=== PATIENT | male | born 1970 | race Caucasian/White ===

== ENCOUNTER 2020-07-18 22:07 | Emergency (ER) | payer MEDICAID, SELFPAY ==
[2020-07-18 22:08] VITALS: BP 149/91; PULSE 72; RESP 18; TEMP 36.9; O2SAT 99; BMI 32.4
--- NOTE | 2020-07-18 22:18 | ECG_ITS ---
APPROVED REPORT Exam: Resting ECG HR:75 bpm ECG Measurements Heart Rate 75 AXES AL 134 P 44 QRSd 80 QRS 35 QT 380 T 50 QTc 424 <Conclusion> Normal sinus rhythm Normal ECG Electronically signed by : Wilberto Ward, 07/19/2020 11:59:50
--- NOTE | 2020-07-18 22:18 | XR_ITS ---
PROCEDURE: XR CHEST 2V CLINICAL HISTORY: chest tightness Smoker COMPARISON: No exams were available for comparison FINDINGS: Cardiac size is upper limits of normal. No evidence of CHF. The lungs are clear without infiltrates, suspicious nodules, or pleural effusions. There are degenerative changes in the thoracic spine IMPRESSION: No acute findings. Dictated by: Bobby Marcos MD 07/19/2020 06:42 Bobby Marcos MD in [place] 07/19/2020 06:42
[2020-07-18 22:23] LABS: Microscopic, Urine URINE MICROSCOPIC (MICROSCOPIC)
[2020-07-18 22:26] LABS: Basophils # 0.1 K/mm3 (0-0.2); Basophils % 0.5 % (0.1-2.0); Chloride 99 mmol/L (98-107); Eosinophils # 0.2 K/mm3 (0.0-0.4); Hematocrit 41.9 % (42.0-52.0); Lymphocytes # 4.2 K/mm3 (0.7-4.5); Lymphocytes % 22.5 % (10-50); Mean Corpuscular HGB Conc 33.5 g/dL (31.8-35.4); Mean Corpuscular Hemoglobin 29.6 pg (27.0-31.2); Mean Corpuscular Volume 88.5 fl (80-94); Mean Platelet Volume 9.1 fl (7.4-10.4); Monocytes % 5.2 % (1.7-9.3); Neutrophils # 13.3 K/mm3 (1.8-7.8); Neutrophils % 70.7 % (37.0-80.0); Platelet Count 276 K/mm3 (142-424); Red Blood Count 4.74 M/mm3 (4.60-6.20); Red Cell Distribution Width 13.6 % (11.5-17.5); Sodium 138 mmol/L (136-145); White Blood Count 18.8 K/mm3 (4.8-10.8)
[2020-07-18 22:27] LABS: Potassium 4.1 mmoL/L (3.5-5.1)
[2020-07-18 22:30] VITALS: BP 154/94; PULSE 72; RESP 17; O2SAT 97
[2020-07-18 22:30] LABS: Anion Gap 14.1 mEq/L (5-15); Blood Urea Nitrogen 12 mg/dl (9-20); Calcium 9.6 mg/dl (8.4-10.2); Carbon Dioxide 29 mmol/L (22.0-30.0); Creatinine Clearance Estimated 170 mL/min (50-200); Estimated Glomerular Filt Rate 120 ml/min (>60); GFR (African American) 145 ML/MIN (>60); Glucose 138 mg/dl (74-100)
[2020-07-18 22:32] LABS: Appearance,Urine CLEAR (Clear); Bilirubin,Urine Negative (Negative); Blood, Urine Negative (Negative); Color,Urine YELLOW (Yellow); Glucose,Urine (UA) Negative (Negative); Ketones,Urine Negative (Negative); Leukocyte Esterase,Urine Negative (Negative); Nitrate,Urine Negative (Negative); PH,Urine 6.5 (5.0-8.5); Protein,Urine Negative (Negative); Urobilinogen,Urine 0.2 EU/dl (0.2)
[2020-07-18 22:33] LABS: MANUAL DIFFERENTIAL MANUAL DIFFERENTIAL (MANUAL DIFF)
[2020-07-18 22:40] LABS: Bacteria,Urine Trace /lpf; Mucus,Urine 1+ /lpf
[2020-07-18 22:44] LABS: Amphetamine/Metha Screen,Urine Negative ng/ml (<1000)
[2020-07-18 22:45] LABS: Barbiturates Screen,Urine Negative ng/ml (<200); Benzodiazepines Screen,Urine Negative ng/ml (<200); Troponin I < 0.01 ng/ml (0.00-0.034)
[2020-07-18 22:46] LABS: Cannabinoid Screen,Urine Positive ng/ml (<50)
[2020-07-18 22:47] LABS: Cocaine Screen,Urine Negative ng/ml (<300); Methadone Screen,Urine Negative ng/ml (<300)
[2020-07-18 22:48] LABS: Opiate Screen,Urine Positive ng/ml (<300); Phencyclidine Screen,Urine Negative ng/ml (<25)
[2020-07-18 22:52] LABS: Eosinophils % 1 % (0-3); Lymphocytes % 22 % (10-50); Monocytes % 1 % (2-9); Neutrophils % 75 % (42-76); Platelet Estimate Normal; RBC Morphology Normal; Total Cells Counted 100
--- NOTE | 2020-07-18 22:54 | [facility].EDCP ---
ED Disposition Clinical Impression: Chest pain Qualifiers: Chest pain type: other chest pain Qualified Code(s): R07.89 - Other chest pain Disposition: Home, Self-Care Condition on Discharge: Good Instructions: DI for Atypical Chest Pain Additional Instructions: Follow-up with primary care provider. Slowly titrate Suboxone doses as you have been previously instructed. Advised to return emergency department if you start having worsening chest pain or difficulty breathing. Referrals: Tulio Valenzuela [Primary Care Provider] - - Critical Care Critical Care Time: No Attestation: On 07/18/20, the high probability of a clinically significant, sudden or life threatening deterioration of the following system(s) required my full and direct attention, intervention and personal management. The time I documented below is in addition to time spent performing reported procedures but includes the following listed in this critical care notation. Medical Decision Making - Medical Records Medical records reviewed: Yes: I reviewed the patient's medical records. - [place] Inquiry Pt receiving controlled substance: No Vital Signs: 07/18/20 22:08 07/18/20 22:30 07/18/20 23:00 Temperature 98.4 F Temperature Source Oral Pulse Rate [Right] 72 72 78 Respiratory Rate 18 17 17 Blood Pressure [Right Arm] 149/91 H 154/94 H 149/97 H Blood Pressure Mean [Right Arm] 110 114 114 Blood Pressure Source [Right Arm] Automatic Cuff Automatic Cuff Automatic Cuff Blood Pressure Position [Right Arm] Supine Supine Supine 02 Sat by Pulse Oximetry 99 97 98 Oxygen Delivery Method Room Air Room Air Room Air 07/18/20 23:30 07/19/20 00:00 07/19/20 00:30 Temperature Temperature Source Pulse Rate [Right] 78 74 81 Respiratory Rate 17 17 17 Blood Pressure [Right Arm] 140/83 147/89 H 147/88 H Blood Pressure Mean [Right Arm] 102 108 107 Blood Pressure Source [Right Arm] Automatic Cuff Automatic Cuff Automatic Cuff Blood Pressure Position [Right Arm] Supine Supine Supine 02 Sat by Pulse Oximetry 98 98 99 Oxygen Delivery Method Room Air Room Air Room Air - Lab Data Lab Results 07/18/20 22:10: Urine Color Yellow, Urine Appearance Clear, Urine pH 6.5, Ur Specific [place] 1.020, Urine Protein Negative, Urine Glucose (UA) Negative, Urine Ketones Negative, Urine Blood Negative, Urine Nitrate Negative, Urine Bilirubin Negative, Urine Urobilinogen 0.2, Ur Leukocyte Esterase Negative, Urine RBC 3-5, Urine WBC 5-10, Ur Squamous Epith Cells 5-10, Urine Bacteria Trace, Urine Mucus 1+ 07/18/20 22:10: WBC 18.8 H, RBC 4.74, Hgb 14.0 L, Hct 41.9 L, MCV 88.5, MCH 29.6, MCHC 33.5, RDW 13.6, Plt Count 276, MPV 9.1, Neut % (Auto) 70.7, Lymph % (Auto) 22.5, Mcdonald % (Auto) 5.2, Eos % (Auto) 1.0, Baso % (Auto) 0.5, Neut # (Auto) 13.3 H, Lymph # (Auto) 4.2, Mcdonald # (Auto) 1.0, Eos # (Auto) 0.2, Baso # (Auto) 0.1, Total Counted 100, Neutrophils % (Manual) 75, Lymphocytes % (Manual) 22, Monocytes % (Manual) 1 L, Eosinophils % (Manual) 1, Basophils % (Manual) 1.0, Platelet Estimate Normal, RBC Morphology Normal 07/18/20 22:10: Sodium 138, Potassium 4.1, Chloride 99, Carbon Dioxide 29, Anion Gap 14.1, BUN 12, Creatinine 0.70, Estimated Creat Clear 170, Estimated GFR 120, Est GFR ( Amer) 145, Glucose 138 H, Calcium 9.6, Troponin I < 0.01 07/18/20 22:10: Urine Opiates Screen Positive H, Urine Methadone Screen Negative, Ur Barbituates Screen Negative, Ur Phencyclidine Scrn Negative, Ur Amphetamines Screen Negative, U Benzodiazepines Scrn Negative, Urine Cocaine Screen Negative, U Marijuana (THC) Screen Positive H Result diagrams: 07/18/20 22:10 07/18/20 22:10 Orders (Tests/Meds): ED MEDICATIONS Discontinued Medications Generic Name Dose Route Start Last Admin Trade Name Maykel PRN Reason Stop Dose Admin Aspirin 324 mg 07/18/20 22:20 07/18/20 22:23 Aspirin 81mg Chewable Tablet PO 07/18/20 22:21 324 mg ONCE ONE Administration ORDERS Category Date T
[2020-07-18 23:00] VITALS: BP 149/97; PULSE 78; RESP 17; O2SAT 98
[2020-07-18 23:30] VITALS: BP 140/83; PULSE 78; RESP 17; O2SAT 98
[2020-07-19] VITALS: BP 147/89; PULSE 74; RESP 17; O2SAT 98
[2020-07-19 00:30] VITALS: BP 147/88; PULSE 81; RESP 17; O2SAT 99
[2020-07-19 01:14] VITALS: BP 142/84; PULSE 79; RESP 18; TEMP 36.9; O2SAT 98
== END 2020-07-19 01:18 | disposition home or self-care (01) ==
PROVIDERS: Emergency Provider Emergency Medicine; PCP Family Medicine
DX: R07.89 Other chest pain (principal); I10 Essential (primary) hypertension; E11.9 Type 2 diabetes mellitus without complications; E78.5 Hyperlipidemia, unspecified; K21.9 Gastro-esophageal reflux disease without esophagitis; F17.210 Nicotine dependence, cigarettes, uncomplicated; F33.1 Major depressive disorder, recurrent, moderate; Z79.899 Other long term (current) drug therapy
CPT/HCPCS: 71046; 80048; 80305; 81001; 84484; 85007; 85025; 93005; 99283

== ENCOUNTER → 2021-02-02 14:00 | Outpatient (CLI) | payer MEDICAID, SELFPAY ==
[2021-02-02 16:02] LABS: Basophils # 0.1 K/mm3 (0-0.2); Eosinophils # 0.2 K/mm3 (0.0-0.4); Eosinophils % 1.5 % (0.1-12.0); Hematocrit 43.9 % (42.0-52.0); Hemoglobin 13.6 g/dL (14.1-18.0); Lymphocytes # 3.7 K/mm3 (0.7-4.5); Lymphocytes % 28.9 % (10-50); Mean Corpuscular Hemoglobin 28.8 pg (27.0-31.2); Mean Corpuscular Volume 92.8 fl (80-94); Mean Platelet Volume 10.5 fl (7.4-10.4); Monocytes # 1.1 K/mm3 (0.1-1.0); Monocytes % 8.3 % (1.7-9.3); Neutrophils # 7.8 K/mm3 (1.8-7.8); Neutrophils % 60.3 % (37.0-80.0); Platelet Count 335 K/mm3 (142-424); Red Blood Count 4.73 M/mm3 (4.60-6.20); Red Cell Distribution Width 13.3 % (11.5-17.5); White Blood Count 12.9 K/mm3 (4.8-10.8)
[2021-02-02 16:06] LABS: Chloride 108 mmol/L (98-107); Potassium 5.1 mmoL/L (3.5-5.1); Sodium 140 mmol/L (136-145)
[2021-02-02 16:08] LABS: Alanine Aminotransferase 39 U/L (12-78); Blood Urea Nitrogen 18 mg/dl (9-20); Estimated Glomerular Filt Rate 89 ml/min (>60); GFR (African American) 108 ML/MIN (>60)
[2021-02-02 16:09] LABS: Albumin Level 4.2 g/dl (3.5-5.0); Albumin/Globulin Ratio 1.6 (1.1-1.8); Alkaline Phosphatase 80 U/L (38-126); Anion Gap 12.1 mEq/L (5-15); Aspartate Amino Transferase 33 U/L (17-59); Bilirubin,Total 0.3 mg/dl (0.2-1.3); Calcium 9.5 mg/dl (8.4-10.2); Carbon Dioxide 25 mmol/L (22.0-30.0); Chol/HDL Ratio 6.8 (1-3.5); Cholesterol 189 mg/dl (140-200); Globulin 2.7 g/dL (1.3-3.2); Glucose 273 mg/dl (74-100); HDL Cholesterol 28 mg/dl (40-60); Total Protein,Serum 6.9 g/dl (6.3-8.2); Triglycerides 282 mg/dl (30-150); VLDL Cholesterol 56 mg/dL (0-40)
[2021-02-02 16:21] LABS: Direct LDL Cholesterol 125.88 mg/dL (100-129)
[2021-02-02 16:25] LABS: 25-OH Vitamin D, Total < 12.8 ng/mL (30-100)
[2021-02-02 16:40] LABS: Thyroid Stimulating Hormone 3.59 uIU/mL (0.465-4.68)
[2021-02-02 16:42] LABS: Hemoglobin A1C 10.4 % (4.0-6.0)
[2021-02-02 19:58] LABS: Creatinine,Urine Random 111 mg/dL (Not Estab.); Microalbumin/Creatinine Ratio 5.4
== END ==
PROVIDERS: Visit Provider Nurse Practitioner Family
DX: E11.9 Type 2 diabetes mellitus without complications (principal); I10 Essential (primary) hypertension; E55.9 Vitamin D deficiency, unspecified; Z79.84 Long term (current) use of oral hypoglycemic drugs
CPT/HCPCS: 80053; 80061; 82043; 82306; 82570; 83036; 84436; 84443; 85025

== ENCOUNTER → 2021-06-29 17:20 | Outpatient (CLI) | payer MEDICAID, SELFPAY ==
[2021-06-29 19:34] LABS: Alanine Aminotransferase 36 U/L (12-78); Albumin Level 4.3 g/dl (3.5-5.0); Albumin/Globulin Ratio 1.5 (1.1-1.8); Alkaline Phosphatase 70 U/L (38-126); Anion Gap 17.5 mEq/L (5-15); Aspartate Amino Transferase 33 U/L (17-59); Bilirubin,Total 0.5 mg/dl (0.2-1.3); Blood Urea Nitrogen 31 mg/dl (9-20); Calcium 9.3 mg/dl (8.4-10.2); Carbon Dioxide 25 mmol/L (22.0-30.0); Chloride 100 mmol/L (98-107); Chol/HDL Ratio 5.5 (1-3.5); Cholesterol 143 mg/dl (140-200); Estimated Glomerular Filt Rate 71 ml/min (>60); GFR (African American) 86 ML/MIN (>60); Globulin 2.8 g/dL (1.3-3.2); Glucose 123 mg/dl (74-100); HDL Cholesterol 26 mg/dl (40-60); Potassium 5.5 mmoL/L (3.5-5.1); Sodium 137 mmol/L (136-145); Total Protein,Serum 7.1 g/dl (6.3-8.2); Triglycerides 199 mg/dl (30-150); VLDL Cholesterol 40 mg/dL (0-40)
[2021-06-29 19:38] LABS: Microalbumin < 6.000 mg/L (0-16.7)
[2021-06-29 19:39] LABS: Basophils # 0.1 K/mm3 (0-0.2); Basophils % 0.7 % (0.1-2.0); Eosinophils # 0.2 K/mm3 (0.0-0.4); Eosinophils % 1.1 % (0.1-12.0); Hemoglobin 12.6 g/dL (14.1-18.0); Lymphocytes # 2.7 K/mm3 (0.7-4.5); Lymphocytes % 18.5 % (10-50); Mean Corpuscular HGB Conc 32.4 g/dL (31.8-35.4); Mean Corpuscular Hemoglobin 28.1 pg (27.0-31.2); Mean Corpuscular Volume 86.7 fl (80-94); Mean Platelet Volume 10.9 fl (7.4-10.4); Monocytes # 0.9 K/mm3 (0.1-1.0); Monocytes % 5.9 % (1.7-9.3); Neutrophils # 10.6 K/mm3 (1.8-7.8); Neutrophils % 73.8 % (37.0-80.0); Platelet Count 304 K/mm3 (142-424); Red Cell Distribution Width 13.8 % (11.5-17.5); White Blood Count 14.4 K/mm3 (4.8-10.8)
[2021-06-29 19:45] LABS: Direct LDL Cholesterol 89.75 mg/dL (100-129)
[2021-06-29 19:51] LABS: 25-OH Vitamin D, Total 15.3 ng/mL (30-100); Free T4 (Free Thyroxine) 1.44 ng/dl (0.78-2.19)
[2021-06-29 20:04] LABS: Thyroid Stimulating Hormone 4.23 uIU/mL (0.465-4.68)
[2021-06-29 20:09] LABS: Hemoglobin A1C 9.8 % (4.0-6.0)
[2021-07-02 12:43] LABS: C-Peptide 3.3 ng/mL (1.1-4.4)
== END ==
PROVIDERS: Visit Provider Nurse Practitioner Family
DX: E11.9 Type 2 diabetes mellitus without complications (principal); I10 Essential (primary) hypertension; E55.9 Vitamin D deficiency, unspecified; Z79.84 Long term (current) use of oral hypoglycemic drugs; Z79.899 Other long term (current) drug therapy
CPT/HCPCS: 80053; 80061; 82043; 82306; 83036; 84439; 84443; 84681; 85025

== ENCOUNTER → 2021-08-10 07:46 | Outpatient (CLI) | payer SELFPAY ==
--- NOTE | 2021-08-10 08:30 | PC.NURSE ---
PFT Completed with 6 minute walk test. Albuterol 0.083% given via HHN Pt tolerated tx well.
--- NOTE | 2021-08-10 09:22 | XR_ITS ---
PROCEDURE: XR CHEST 2V CLINICAL HISTORY: dust exposure COMPARISON: CR XR CHEST 2V from 07/18/2020 FINDINGS: The cardiomediastinal silhouette and pulmonary vascularity are within normal limits. The lungs are clear without infiltrates, suspicious nodules, or pleural effusions. Degenerative changes thoracic spine IMPRESSION: No acute findings. Dictated by: Bobby Marcos MD 08/10/2021 09:49 Bobby Marcos MD in [facility] 08/10/2021 09:49
== END ==
PROVIDERS: PCP Nurse Practitioner Family; Visit Provider Internal Medicine Pulmonary Disease
DX: R06.00 Dyspnea, unspecified (principal); Z57.9 Occupational exposure to unspecified risk factor
CPT/HCPCS: 71046; 94060; 94618; 94726; 94729

== ENCOUNTER → 2023-01-08 23:30 | Outpatient (CLI) | payer OTHER, SELFPAY ==
[2023-01-08 19:11] LABS: Basophils # 0.1 K/mm3 (0-0.2); Eosinophils # 0.2 K/mm3 (0.0-0.4); Eosinophils % 2.1 % (0.1-12.0); Hemoglobin 14.2 g/dL (14.1-18.0); Lymphocytes # 2.9 K/mm3 (0.7-4.5); Lymphocytes % 26.9 % (10-50); Mean Corpuscular HGB Conc 31.5 g/dL (31.8-35.4); Mean Corpuscular Hemoglobin 28.2 pg (27.0-31.2); Mean Corpuscular Volume 89.4 fl (80-94); Mean Platelet Volume 11.2 fl (7.4-10.4); Monocytes # 0.9 K/mm3 (0.1-1.0); Monocytes % 8.3 % (1.7-9.3); Neutrophils # 6.6 K/mm3 (1.8-7.8); Neutrophils % 61.7 % (37.0-80.0); Platelet Count 290 K/mm3 (142-424); Red Blood Count 5.03 M/mm3 (4.60-6.20); White Blood Count 10.7 K/mm3 (4.8-10.8)
[2023-01-08 19:41] LABS: Creatinine,Urine Random 71 mg/dL (Not Estab.); Microalbumin < 6.000 mg/L (0-16.7)
[2023-01-08 19:43] LABS: Alanine Aminotransferase 40 U/L (12-78); Albumin Level 4.1 g/dl (3.5-5.0); Albumin/Globulin Ratio 1.4 (1.1-1.8); Alkaline Phosphatase 100 U/L (38-126); Anion Gap 7.1 mEq/L (5-15); Aspartate Amino Transferase 39 U/L (17-59); Bilirubin,Total 0.5 mg/dl (0.2-1.3); Blood Urea Nitrogen 13 mg/dl (9-20); Calcium 8.8 mg/dl (8.4-10.2); Carbon Dioxide 30 mmol/L (22.0-30.0); Chloride 103 mmol/L (98-107); Chol/HDL Ratio 5.6 (1-3.5); Cholesterol 162 mg/dl (140-200); Estimated Glomerular Filt Rate 102 ml/min (>60); GFR (African American) 123 ML/MIN (>60); Globulin 2.9 g/dL (1.3-3.2); Glucose 293 mg/dl (74-100); HDL Cholesterol 29 mg/dl (40-60); Potassium 4.1 mmoL/L (3.5-5.1); Sodium 136 mmol/L (136-145); Triglycerides 313 mg/dl (30-150); VLDL Cholesterol 63 mg/dL (0-40)
[2023-01-08 19:54] LABS: Direct LDL Cholesterol 97.89 mg/dL (100-129)
[2023-01-08 20:00] LABS: 25-OH Vitamin D, Total < 12.8 ng/mL (30-100)
[2023-01-08 20:15] LABS: Prostate Specific Ag Screen 0.2 ng/ml (0.0-4.0)
== END ==
LOC: LAB.DROPOF 01-09 00:18
PROVIDERS: PCP Physician Assistant; Visit Provider Physician Assistant
DX: E11.9 Type 2 diabetes mellitus without complications (principal); H66.92 Otitis media, unspecified, left ear; H60.92 Unspecified otitis externa, left ear; K04.7 Periapical abscess without sinus; E55.9 Vitamin D deficiency, unspecified; Z79.84 Long term (current) use of oral hypoglycemic drugs
CPT/HCPCS: 80053; 80061; 82043; 82306; 82570; 83036; 84443; 85025; G0103

== ENCOUNTER 2024-05-28 10:52 | Outpatient (CLI) | payer OTHER, SELFPAY ==
[2024-05-28 17:55] LABS: Basophils # 0.1 K/mm3 (0-0.2); Eosinophils # 0.1 K/mm3 (0.0-0.4); Hemoglobin 15.4 g/dL (14.1-18.0); Lymphocytes # 3.8 K/mm3 (0.7-4.5); Lymphocytes % 29.1 % (10-50); Mean Corpuscular HGB Conc 32.8 g/dL (31.8-35.4); Mean Corpuscular Hemoglobin 30.1 pg (27.0-31.2); Mean Corpuscular Volume 91.8 fl (80-94); Mean Platelet Volume 12.1 fl (7.4-10.4); Monocytes # 0.8 K/mm3 (0.1-1.0); Monocytes % 6.3 % (1.7-9.3); Neutrophils # 8.3 K/mm3 (1.8-7.8); Neutrophils % 62.6 % (37.0-80.0); Platelet Count 255 K/mm3 (142-424); Red Blood Count 5.12 M/mm3 (4.60-6.20); Red Cell Distribution Width 13.7 % (11.5-17.5); White Blood Count 13.2 K/mm3 (4.8-10.8)
[2024-05-28 18:39] LABS: Alanine Aminotransferase 80 U/L (12-78); Albumin Level 4.5 g/dl (3.5-5.0); Albumin/Globulin Ratio 1.4 (1.1-1.8); Alkaline Phosphatase 109 U/L (38-126); Aspartate Amino Transferase 44 U/L (17-59); Bilirubin,Total 0.6 mg/dl (0.2-1.3); Blood Urea Nitrogen 16 mg/dl (9-20); Carbon Dioxide 26 mmol/L (22.0-30.0); Chloride 101 mmol/L (98-107); Cholesterol 279 mg/dl (140-200); Estimated Glomerular Filt Rate 118 ml/min (>60); GFR (African American) 143 ML/MIN (>60); Globulin 3.2 g/dL (1.3-3.2); Glucose 367 mg/dl (74-100); HDL Cholesterol 35 mg/dl (40-60); Sodium 137 mmol/L (136-145); Total Protein,Serum 7.7 g/dl (6.3-8.2)
[2024-05-28 18:51] LABS: Direct LDL Cholesterol 171.28 mg/dL (100-129)
[2024-05-28 18:57] LABS: Free T4 (Free Thyroxine) 1.34 ng/dl (0.78-2.19)
[2024-05-28 19:08] LABS: Triglycerides 414 mg/dl (30-150)
[2024-05-28 19:10] LABS: Prostate Specific Ag Screen 0.3 ng/ml (0.0-4.0); Thyroid Stimulating Hormone 4.75 uIU/mL (0.465-4.68)
[2024-05-28 19:16] LABS: Iron 124 ug/dL (49-181)
[2024-05-28 19:26] LABS: Total Iron Binding Capacity 341 ug/dL (261-462)
[2024-05-28 19:29] LABS: Vitamin B12 969 pg/mL (239-931)
[2024-05-28 19:53] LABS: Ferritin 126 ng/ml (17.9-464)
[2024-05-28 20:40] LABS: Creatinine,Urine Random 50 mg/dL (Not Estab.)
[2024-05-28 20:42] LABS: Microalbumin < 6.000 mg/L (0-16.7)
[2024-05-28 21:03] LABS: 25-OH Vitamin D, Total 16.1 ng/mL (30-100)
[2024-05-29 13:47] LABS: HIV (1&2) Antibody Rapid NON REACTIVE
[2024-06-02 18:33] LABS: HCV Ab Reactive (Non Reactive)
== END 2024-05-28 23:59 | disposition home or self-care (01) ==
LOC: LAB.DROPOF 05-31 10:53
PROVIDERS: PCP Student in an Organized Health Care Education/Training Program; Visit Provider Student in an Organized Health Care Education/Training Program
DX: Z12.5 Encounter for screening for malignant neoplasm of prostate (principal); Z11.59 Encounter for screening for other viral diseases; Z11.4 Encounter for screening for human immunodeficiency virus [HIV]; E03.9 Hypothyroidism, unspecified; G62.9 Polyneuropathy, unspecified; E55.9 Vitamin D deficiency, unspecified; E11.9 Type 2 diabetes mellitus without complications; Z79.84 Long term (current) use of oral hypoglycemic drugs; Z79.85 Long-term (current) use of injectable non-insulin antidiabetic drugs; Z79.4 Long term (current) use of insulin; Z68.30 Body mass index [BMI] 30.0-30.9, adult; E66.9 Obesity, unspecified
CPT/HCPCS: 80050; 80053; 80061; 82043; 82306; 82570; 82607; 82728; 83540; 83550; 84439; 84443; 85025; G0103

== ENCOUNTER 2025-01-03 15:56 | Outpatient (CLI) | payer OTHER, SELFPAY ==
--- NOTE | 2025-01-03 15:59 | XR_ITS ---
PROCEDURE INFORMATION: Exam: XR Right Ankle Exam date and time: 01/03/2025 4:04 PM Age: 54 years old Clinical indication: Pain; Ankle; Right; Additional info: Right posterior ankle pain TECHNIQUE: Imaging protocol: Radiologic exam of the right ankle. Views: 1 or 2 views. COMPARISON: CR XR ANKLE RT 2V 01/03/2025 4:04 PM FINDINGS: Bones/joints: There is a 4.5 cm geographic, slightly expansile bone lesion within the distal tibial metaphysis with a slightly radiolucent, ground-glass appearance possibly representing a bone cyst or fibrous dysplasia. Osseous structures are otherwise unremarkable. Joint surfaces of the ankle mortise is fairly well-preserved. Alignment is maintained. No fracture detected. The Soft tissues: Unremarkable. IMPRESSION: 4.5 cm slightly expansile bone lesion distal tibial shaft. Recommend further imaging beginning with CT examination of the right ankle.
--- NOTE | 2025-01-03 15:59 | XR_ITS ---
PROCEDURE INFORMATION: Exam: XR Right Foot Exam date and time: 01/03/2025 4:04 PM Age: 54 years old Clinical indication: Pain; Foot; Right; Additional info: Right great toe infection TECHNIQUE: Imaging protocol: Radiologic exam of the right foot. Views: 3 or more views. COMPARISON: CR XR ANKLE RT 2V 01/03/2025 4:04 PM FINDINGS: Bones/joints: There are no osteolytic or destructive bone changes. There is no fracture evident. There indistinct small cystic radiolucencies involving the base of the 2nd 3rd and 4th metatarsals of uncertain etiology. It may be degenerative in nature secondary to small bone cysts or enchondromas. There appears to be bony fusion of the 3rd tarsometatarsal joint. There are degenerative changes involving the base of the metatarsals most pronounced at the 4th-5th metatarsal. Soft tissues: Normal. IMPRESSION: 1. No radiographic evidence of osteomyelitis. 2. Nonspecific cystic bone changes involving the bases of the 2nd 3rd and 4th metatarsals as discussed above. Findings can be better assessed on CT examination of the right foot.
== END 2025-01-03 23:59 | disposition home or self-care (01) ==
LOC: RAD 15:57
PROVIDERS: PCP Internal Medicine; Visit Provider Internal Medicine
DX: M25.571 Pain in right ankle and joints of right foot (principal); S90.421A Blister (nonthermal), right great toe, initial encounter; L08.9 Local infection of the skin and subcutaneous tissue, unspecified
CPT/HCPCS: 73600; 73630

== ENCOUNTER 2025-01-17 06:44 | Outpatient (CLI) | payer OTHER, SELFPAY ==
--- NOTE | 2025-01-17 06:50 | CT_ITS ---
FINAL REPORT TECHNIQUE: Thin section axial CT images with coronal and sagittal reformats were performed. This study was performed with techniques to keep radiation doses as low as reasonably achievable (ALARA). Individualized dose reduction techniques using automated exposure control or adjustment of mA and/or kV according to the patient''s size were employed. CLINICAL HISTORY: Right foot pain, lesion in foot FINDINGS: There are lucencies involving the bases of the second, third and fourth metatarsals with thin sclerotic margins related to likely benign etiology such as degenerative bone cysts associated with degenerative changes of the midfoot. There is no periosteal reaction. No soft tissue masses seen. There is no fracture identified. IMPRESSION: Benign appearing marrow signal of the second metatarsal base and to a lesser extent third and fourth metatarsal bases, favor degenerative cysts. No fracture identified. Reviewed, Interpreted and Dictated by Tenzin Downing MD Transcribed by Chana Walls Authenticated and [facility]
--- NOTE | 2025-01-17 06:50 | CT_ITS ---
FINAL REPORT TECHNIQUE: Thin section axial CT images with coronal and sagittal reformats were performed. This study was performed with techniques to keep radiation doses as low as reasonably achievable (ALARA). Individualized dose reduction techniques using automated exposure control or adjustment of mA and/or kV according to the patient''s size were employed. CLINICAL HISTORY: Right ankle pain, lesion in distal tibial bone FINDINGS: There is no fracture. There are mild degenerative changes. A tiny joint body is seen in the posterior ankle joint anterior to the os trigonum. There is mild deformity of the distal tibial shaft with cylindrical cortical defect of the lateral cortex which may present prior surgery and/or old fracture. IMPRESSION: 1. No acute bony abnormality. 2. Abnormal appearance of the distal tibia which may related to old surgery or previous trauma. Reviewed, Interpreted and Dictated by Tenzin Downing MD Transcribed by Chana Walls Authenticated and . [facility]
== END 2025-01-17 23:59 | disposition home or self-care (01) ==
LOC: RAD 06:45
PROVIDERS: PCP Internal Medicine; Visit Provider Internal Medicine
DX: M25.571 Pain in right ankle and joints of right foot (principal); M79.671 Pain in right foot; M89.9 Disorder of bone, unspecified
CPT/HCPCS: 73700

== ENCOUNTER 2025-01-31 13:15 | Outpatient (CLI) | payer OTHER, SELFPAY ==
--- NOTE | 2025-01-31 13:17 | US_ITS ---
FINAL REPORT CLINICAL HISTORY: Nonhealing right great toe ulcer,DM,HTN,HLD,SMOKER,CLAUDICATION RLE COMPARISON: None FINDINGS: ANKLE-BRACHIAL PRESSURE INDICES Pressure indices are as follows: RIGHT LOWER EXTREMITY: Ankle-brachial pressure index: 0.7 Comments: Moderate peripheral vascular disease LEFT LOWER EXTREMITY: Ankle-brachial pressure index: 1.1 Comments: Normal CONCLUSION: Moderate peripheral vascular disease in the right lower extremity, normal pressure index in the left lower extremity. Given the extent of disease, the patient may benefit from CT angiography for further evaluation. Reviewed, Interpreted and Dictated by Tenzin Downing MD Transcribed by Winter Parkinson Authenticated and [facility]
== END 2025-01-31 23:59 | disposition home or self-care (01) ==
LOC: RT 13:15
PROVIDERS: PCP Internal Medicine; Visit Provider Internal Medicine
DX: I73.9 Peripheral vascular disease, unspecified (principal); L97.519 Non-pressure chronic ulcer of other part of right foot with unspecified severity; E11.42 Type 2 diabetes mellitus with diabetic polyneuropathy
CPT/HCPCS: 93923

== ENCOUNTER 2025-02-07 16:45 | Outpatient (CLI) | payer OTHER, SELFPAY ==
[2025-02-07 20:12] LABS: Basophils # 0.1 K/mm3 (0-0.2); Basophils % 0.9 % (0.1-2.0); Eosinophils # 0.1 K/mm3 (0.0-0.4); Eosinophils % 1.4 % (0.1-12.0); Hematocrit 46.1 % (42.0-52.0); Hemoglobin 14.9 g/dL (14.1-18.0); Lymphocytes # 3.4 K/mm3 (0.7-4.5); Lymphocytes % 33.4 % (10-50); Mean Corpuscular HGB Conc 32.3 g/dL (31.8-35.4); Mean Corpuscular Hemoglobin 28.4 pg (27.0-31.2); Mean Corpuscular Volume 87.8 fl (80-94); Monocytes # 0.7 K/mm3 (0.1-1.0); Monocytes % 7.1 % (1.7-9.3); Neutrophils # 5.8 K/mm3 (1.8-7.8); Neutrophils % 56.3 % (37.0-80.0); Platelet Count 224 K/mm3 (142-424); Red Blood Count 5.25 M/mm3 (4.60-6.20); Red Cell Distribution Width 12.6 % (11.5-17.5); White Blood Count 10.2 K/mm3 (4.8-10.8)
[2025-02-07 20:43] LABS: Albumin Level 4.3 g/dl (3.5-5.0); Chloride 100 mmol/L (98-107); Potassium 5.1 mmoL/L (3.5-5.1); Sodium 136 mmol/L (136-145)
[2025-02-07 20:45] LABS: Alanine Aminotransferase 48 U/L (12-78); Blood Urea Nitrogen 13 mg/dl (9-20); Estimated Glomerular Filt Rate 118 ml/min (>60); GFR (African American) 142 ML/MIN (>60)
[2025-02-07 20:46] LABS: Albumin/Globulin Ratio 1.8 (1.1-1.8); Alkaline Phosphatase 75 U/L (38-126); Anion Gap 9.1 mEq/L (5-15); Aspartate Amino Transferase 37 U/L (17-59); Bilirubin,Total 0.5 mg/dl (0.2-1.3); Calcium 9.7 mg/dl (8.4-10.2); Carbon Dioxide 32 mmol/L (22.0-30.0); Chol/HDL Ratio 7.6 (1-3.5); Cholesterol 243 mg/dl (140-200); Globulin 2.4 g/dL (1.3-3.2); HDL Cholesterol 32 mg/dl (40-60); Total Protein,Serum 6.7 g/dl (6.3-8.2)
[2025-02-07 20:56] LABS: Hemoglobin A1C 12.3 % (4.0-6.0)
[2025-02-07 20:57] LABS: Direct LDL Cholesterol 115.51 mg/dL (100-129)
[2025-02-07 20:58] LABS: Erythrocyte Sedimentation Rate 7 mm/hr (0-20)
[2025-02-07 21:52] LABS: Glucose 400 mg/dl (74-100)
[2025-02-07 21:53] LABS: Triglycerides 617 mg/dl (30-150)
== END 2025-02-07 23:59 | disposition home or self-care (01) ==
LOC: LAB.DROPOF 02-08 14:32
PROVIDERS: PCP Internal Medicine; Visit Provider Internal Medicine
DX: E78.5 Hyperlipidemia, unspecified (principal); E11.42 Type 2 diabetes mellitus with diabetic polyneuropathy; L97.519 Non-pressure chronic ulcer of other part of right foot with unspecified severity; I73.9 Peripheral vascular disease, unspecified; I10 Essential (primary) hypertension; Z79.84 Long term (current) use of oral hypoglycemic drugs; Z79.4 Long term (current) use of insulin; F17.210 Nicotine dependence, cigarettes, uncomplicated
CPT/HCPCS: 80053; 80061; 83036; 85025; 85651

== ENCOUNTER 2025-06-15 22:19 | Emergency (ER) | payer OTHER, SELFPAY ==
--- NOTE | 2025-06-15 22:20 | PC.NURSE ---
Pt able to swallow and manage his own secreations
[2025-06-15 22:25] VITALS: BP 131/83; PULSE 65; RESP 20; TEMP 37; O2SAT 97; BMI 29.7
--- NOTE | 2025-06-15 22:27 | CT_ITS ---
PROCEDURE INFORMATION: Exam: CT Neck With Contrast Exam date and time: 06/15/2025 11:11 PM Age: 54 years old Clinical indication: Other: Pharyngitis, L neck fullness difficulty swallowing TECHNIQUE: Imaging protocol: Computed tomography of the neck with contrast. Radiation optimization: All CT scans at this facility use at least one of these dose optimization techniques: automated exposure control; mA and/or kV adjustment per patient size (includes targeted exams where dose is matched to clinical indication); or iterative reconstruction. Contrast material: ISOVUE; Contrast volume: 75 ml; Contrast route: IV; COMPARISON: CR XR CHEST 2V 08/10/2021 9:29 AM FINDINGS: Salivary glands: Unremarkable. Glands are normal in size. Pharynx: Poorly defined left palatine tonsillar hypodensity measuring 2.5 x 1.6 x 3.0 cm with mass effect and partial airway narrowing. Larynx: Unremarkable. Epiglottis is normal. Thyroid: Normal. No enlarged or calcified nodules. Trachea: Visualized trachea is unremarkable. Lungs: Unremarkable as visualized. Lymph nodes: Multilevel reactive lymph nodes. Bones/joints: Unremarkable. No acute fracture. Soft tissues: Unremarkable. No significant soft tissue swelling. IMPRESSION: Left peritonsillar phlegmon/developing abscess with mass effect and partial airway narrowing.
--- NOTE | 2025-06-15 22:29 | PC.NURSE ---
Pt awake alert and oriented Skin pink warm and dry Resp full and easy Speech clear and appropriate. Pt's voice hoarse.
--- NOTE | 2025-06-15 22:30 | ED_ITS ---
Discharge Plan Disposition Patient Disposition: Left Against Medical Advice Prescriptions Prescriptions: No Action aspirin [Adult Aspirin Regimen] 81 mg tablet,delayed release (DR/EC) 81 mg PO DAILY Qty: 90 3RF ergocalciferol (vitamin D2) 1,250 mcg (50,000 unit) capsule 1,250 mcg PO WEEKLY Qty: 14 3RF methadone 10 mg/5 mL solution 135 mg PO DAILY mupirocin calcium 2 % cream 1 applic topical BID Qty: 30 3RF fluoxetine 10 mg capsule 10 mg PO DAILY Qty: 30 2RF lactulose 10 gram/15 mL solution 20 g PO DAILY PRN (Reason: constipation) Qty: 946 1RF (DME) blood-glucose meter Misc See Rx Instructions .ROUTE .MEDSUPPLY Qty: 1 0RF Rx Instructions: Check blood sugars twice a day and keep a record insulin glargine [Lantus Solostar U-100 Insulin] 100 unit/mL (3 mL) insulin pen 40 unit SQ HS Qty: 15 5RF cholecalciferol (vitamin D3) 50 mcg (2,000 unit) capsule 50 mcg PO DAILY Qty: 90 3RF (DME) Dexcom G6 Dumper Misc See Rx Instructions .Route Qty: 1 0RF Rx Instructions: As directed (DME) Dexcom G6 Transmitter Device See Rx Instructions .Route Qty: 1 0RF Rx Instructions: As directed (DME) Dexcom G6 Sensor Device See Rx Instructions .Route Qty: 3 0RF Rx Instructions: As directed (DME) pen needle, diabetic [BD Ultra-Fine Micro Pen Needle] 32 gauge x 1/4 needle See Rx Instructions .Route Qty: 100 5RF Rx Instructions: As directed CHECK SUGAR TWICE DAILY losartan-hydrochlorothiazide 50-12.5 mg tablet 1 tab PO DAILY Qty: 90 1RF glipizide 10 mg tablet 10 mg PO BID Qty: 180 1RF cetirizine [Zyrtec] 10 mg tablet 10 mg PO DAILY Qty: 30 2RF fluticasone propionate [Flonase Allergy Relief] 50 mcg/actuation spray,suspension 1 spray intranasal DAILY PRN (Reason: allergy symptoms) Qty: 16 2RF Rx Instructions: administer into each nostril metformin 1,000 mg tablet 1,000 mg PO BID Qty: 180 1RF Rx Instructions: Take with food or meal atorvastatin 40 mg tablet 40 mg PO DAILY Qty: 90 1RF naproxen 500 mg tablet See Rx Instructions .ROUTE .COMPLEX Qty: 60 1RF Dose Instruction: TAKE ONE TABLET BY MOUTH 2 TIMES A DAY NEEDED FOR PAIN OR INFLAMMATION Rx Instructions: TAKE ONE TABLET BY MOUTH 2 TIMES A DAY NEEDED FOR PAIN OR INFLAMMATION nicotine (polacrilex) 4 mg gum 4 mg buccal Q2H Qty: 100 1RF omeprazole 20 mg capsule,delayed release(DR/EC) See Rx Instructions .ROUTE .COMPLEX Qty: 90 1RF Dose Instruction: TAKE 1 CAPSULE BY MOUTH ONCE DAILY FOR STOMACH Rx Instructions: TAKE 1 CAPSULE BY MOUTH ONCE DAILY FOR STOMACH gabapentin 300 mg capsule 600 mg PO HS Qty: 60 0RF Referrals Follow up/Referrals: Wilberto Ward MD [Primary Care Provider, Medical] - See instructions Clinical Impressions Clinical Impression: Abscess, peritonsillar Print Language Print Language: Tamazight Discharge ED Provider: Escobar Borden General Adult HPI <Escobar Borden MD - Last Filed: 06/15/25 22:34> General Chief complaint: Sore Throat Stated complaint: Sore Throat; Unable to swallow Time Seen by Provider: 06/15/25 22:20 Mode of Arrival: Ambulatory Source of Information: Patient Description of Symptoms (Recalled from ER Triage Doc. by RN): Pt states he has had a sore throat for a few days voice hoarse and difficult to swallow also associated History of Present Illness HPI narrative: Patient is a 54-year-old male smoker who presents emergency department for evaluation of difficulty swallowing and sore throat. He has had a sore throat over the last few days, his voice has become increasingly hoarse and garbled and he has had some difficulty swallowing. No vomiting. No chest pain. Not particularly significantly limited range of motion however due to worsening symptoms of difficulty swallowing who presents here for continued evaluation. No other acute complaints at this time. Please note that above description of symptoms, in this electronic medical record under categorization of recalled from ER triage doctor by RN are reflective of an initial nursing assessment, however, is not reflective of my full history and physical exam that was personally taken and clarified. Consequentially, this preceding description of symptoms, which may include the patient's categorized chief complaint in the EMR, do not reflect my personal clinical impression, and the ultimate description of history of present illness and patient stated complaints should be deferred to this section of the note. Unless stated otherwise or congruent with this section of the note, additional signs, symptoms, or incongruence should be interpreted as inaccurate with my clinical impression. Related Data Home Medications ?Medication ?Instructions ?Recorded ?Confirmed methadone 10 mg/5 mL oral solution 135 mg PO DAILY 10/1005/11/25 Previous Rx's ?Medication ?Instructions ?Recorded cholecalciferol (vitamin D3) 50 50 mcg PO DAILY #90 ca ps 01/10/23 mcg (2,000 unit) capsule blood-glucose transmitter (Dexcom #1 ea 01/22/23 G6 Transmitter device) blood-glucose,sas analyst,cont #1 ea 01/22/23 (Dexcom G6 Dumper) blood-glucose sensor (Dexcom G6 #3 ea 02/11/23 Sensor device) aspirin 81 mg tablet,delayed 81 mg PO DAILY #90 tabs 0 05/28/24 release (Adult Aspirin Regimen) ergocalciferol (vitamin D2) 1,250 1,250 mcg PO WEEKLY #14 caps 05/28/24 mcg (50,000 unit) capsule pen needle, diabetic 32 gauge x #100 ea 11/03/2411/20 (BD Ultra-Fine Micro Pen Needle) glipizide 10 mg tablet 10 mg PO BID #180 tabs 12/06 losartan 50 mg-hydrochlorothiazide 1 tab PO DAILY #90 tabs 12/06/24 12.5 mg tablet mupirocin calcium 2 % topical cream 1 applic topical B ID #30 grams 01/03/25 fluoxetine 10 mg capsule 10 mg PO DAILY #30 caps 01/15 cetirizine 10 mg tablet (Zyrtec) 10 mg PO DAILY #30 ta bs 02/04/25 fluticasone propionate 50 1 spray intranasal DAILY PRN 02/04/25 mcg/actuation nasal allergy symptoms #16 grams spray,suspension (Flonase Allergy Relief) atorvastatin 40 mg tablet 40 mg PO DAILY #90 tabs 01/16 07/11 metformin 1,000 mg tablet 1,000 mg PO BID #180 tabs naproxen 500 mg tablet See Rx Instructions .Route 0 03/28/25 .COMPLEX #60 tabs blood-glucose meter #1 ea 05/11/25 insulin glargine 100 unit/mL (3 40 unit (0.4 mL) SQ HS #15 mL 05/11/25 mL) subcutaneous pen (Lantus Solostar U-100 Insulin) lactulose 10 gram/15 mL oral 20 g (30 mL) PO DAILY PRN 05/11/25 solution constipation #946 mL nicotine (polacrilex) 4 mg gum 4 mg buccal Q2H #100 ea 05/17/25 omeprazole 20 mg capsule,delayed See Rx Instructions . Route 05/26/25 release .COMPLEX #90 caps gabapentin 300 mg capsule 600 mg (2 x 300 mg) PO HS #6 0 caps 06/08/25 Allergies Allergy/AdvReac Type Severity Reaction Status Date / Time No Known Allergies Allergy Verified 05/11/25 15:17 [facility] <Escobar Borden MD - Last Filed: 06/15/25 22:34> [facility] Disclaimer: The information contained in this section may have been updated after the patient was seen, as this information can be updated by other users. Medical History Tobacco use Opiate dependence Uncontrolled blood glucose Traumatic ulcer of lower leg, limited to breakdown of skin Acute eczema Hypertension Diabetes Vitamin D deficiency Surgical History No significant past surgical history Family History Other No significant family history Social History Smoking Status: Current every day smoker tobacco type: cigarettes packs per day: 1 alcohol intake: never substance use type: marijuana current occupational status: employed Travel in the last 8 weeks?: None household members: family housing: house Have you lived/traveled outside [place] in past 30 days?: No Contact w/someone who lives/traveled outside US past 30 days?: No Exposure to someone with infectious disease in past 14 days?: No Do you have a fever (greater than 100.4 F or 38 C)?: No Have you tested positive for COVID-19?: No Exposed to someone with COVID-19 in past 14 days?: No Do you have a sore throat?: No Do you have a cough?: No Do you have any weakness?: No Do you have any diarrhea?: No Are you experiencing any unusual bleeding?: No Do you have any muscle aches/pain?: No Do you have any abdominal pain?: No Are you experiencing loss of taste or smell?: No Other Medical History Have you received the Flu Vaccine for this season: No Have you received the Pneumonia Vaccine: No <Escobar Borden MD - Last Filed: 06/15/25 22:34> ROS Obtained: Yes Systems reviewed as appropriate & no additional complaints except as documented Physical Exam <Escobar Borden MD - Last Filed: 06/15/25 22:34> General General appearance: alert and in no apparent distress Head Head exam: atraumatic and normocephalic Eye Eye exam: Present PERRL and EOMI ENT ENT exam: Present mucous membranes moist; Absent normal oropharynx (Mildly swollen palate teen tonsils with exudate) Neck Neck exam: Present normal inspection Chest Chest inspection: Present normal inspection and symmetric chest wall rise Respiratory Respiratory exam: Present normal lung sounds bilaterally; Absent respiratory distress Cardiovascular Cardiovascular exam: Present regular rate and normal rhythm Abdominal Exam Abdominal exam: Present soft Extremities Exam Extremities exam: Present normal inspection Neurological Exam Neurological exam: Present alert Psychiatric Psychiatric exam: Present normal affect Skin Skin exam: Present warm and dry Medical Decision Making <Escobar Borden MD - Last Filed: 06/15/25 22:34> Medical Records Screening: Per USPSTF and CDC recommendations, given the prevalence of disease in our region, it is our hospital?s policy to screen for HIV and viral Hepatitis for all patients aged 18 and over and those with ongoing risk factors. [place] Inquiry Pt receiving controlled substance: No Vital Signs: 06/15/25 22:25 06/15/25 23:00 Temperature 98.6 F Temperature Source Oral Pulse Rate 60 Pulse Rate [Right Radial] 65 Respiratory Rate 20 Blood Pressure 135/68 Blood Pressure [Right Arm] 131/83 Blood Pressure Mean [Right Arm] 99 Blood Pressure Source [Right Arm] Automatic Cuff Blood Pressure Position [Right Arm] Sitting 02 Sat by Pulse Oximetry 97 95 Oxygen Delivery Method Room Air Lab Data Lab Results 06/15/25 22:35: WBC 19.1 H, RBC 4.61, Hgb 12.9 L, Hct 39.9 L, MCV 86.6, MCH 28.0, MCHC 32.3, RDW 12.2, Plt Count 270, MPV 12.4 H, Neut % (Auto) 71.6, Lymph % (Auto) 15.4, [place] % (Auto) 10.6 H, Eos % (Auto) 0.2, Baso % (Auto) 0.6, Neut # (Auto) 13.7 H, Lymph # (Auto) 2.9, [place] # (Auto) 2.0 H, Eos # (Auto) 0.0, Baso # (Auto) 0.1, Total Counted 100, Neutrophils % (Manual) 75, Lymphocytes % (Manual) 16, Monocytes % (Manual) 8, Basophils % (Manual) 1.0, Nucleated RBCs 2, Platelet Estimate Normal, RBC Morphology Normal, Sodium 136, Potassium 3.9, Chloride 99, Carbon Dioxide 29, Anion Gap 11.9, BUN 9, Creatinine 0.50 L, Estimated Creat Clear 206, Estimated GFR 173, Est GFR ( Amer) 210, Glucose 190 H, Calcium 9.4, Total Bilirubin 0.6, AST 25, ALT 28, Alkaline Phosphatase 95, C-Reactive Protein 88.4 H, Total Protein 7.3, Albumin 3.3 L, Globulin 4.0 H, A lbumin/Globulin Ratio 0.8 L, SARS-CoV-2 (PCR) Not detected, HCV Ab JODI w/Rflx PCR Qn Reactive, HIV Ag/Ab Combo Qual Negative, Influenza A Untype (PCR) Not detected, Influenza Type B (PCR) Not detected, Group A Strep Rapid Positive A 06/15/25 22:35 06/15/25 22:35 Orders (Tests/Meds): ED MEDICATIONS Discontinued Medications Generic Name Dose Route Start Last Admin Trade Name Maykel PRN Reason Stop Dose Admin Acetaminophen 1,000 mg 06/15/25 22:27 06/15/25 22:33 Acetaminophen 1,000mg/100ml Vial IV 06/15/25 22:28 1,000 mg ONCE ONE Administration Dexamethasone Sodium Phosphate 10 mg 06/15/25 22:27 06/15/25 22:33 Dexamethasone 4mg/Ml 1ml Vial IV 06/15/25 22:28 10 mg ONCE ONE Administration Ampicillin Sodium/Sulbactam 100 mls @ 200 mls/hr 06/16/25 00:20 06/16/25 00:42 Sodium 3 gm/ Sodium Chloride IV 06/16/25 00:21 Not Given ONCE ONE Ampicillin Sodium/Sulbactam 100 mls @ 200 mls/hr 06/16/25 00:35 06/16/25 00:38 Sodium 3 gm/ Sodium Chloride IV 06/16/25 00:36 200 mls/hr ONCE ONE Administration Iopamidol 75 ml 06/15/25 23:09 06/15/25 23:11 Iopamidol-370 (76%);100ml Bottle IV 06/15/25 23:10 75 ml ONCE ONE Administration Ketorolac Tromethamine 30 mg 06/15/25 22:27 06/15/25 22:33 Ketorolac 30mg/Ml Vial IV 06/15/25 22:28 30 mg ONCE ONE Administration Sodium Chloride 10 ml 06/15/25 23:09 06/15/25 23:11 Sodium Chloride 0.9% 10ml Syr (Rad Only) IV 06/15/25 23:10 10 ml ONCE ONE Administration ORDERS Category Date Time Status CT soft tissue neck w con Stat Cat Scan 06/15/25 22:27 Completed CBC w/Auto Diff [Complete Blood Count Auto Diff] Stat Lab 06/15/25 22:35 Completed CMP [Comprehensive Metabolic Panel] Stat Lab 06/15/25 22:35 Completed CRP [C-Reactive Protein] Stat Lab 06/15/25 22:35 Completed HCV RNA PCR, Quant Routine Lab 06/15/25 22:35 Received HIV Combo Routine Lab 06/15/25 22:35 Completed Hepatitis C Ab Qual. W/ RFX Routine Lab 06/15/25 22:35 Completed Rapid PCR Covid and Flu A/B Stat Lab 06/15/25 22:35 Completed Rapid Strep Scrn Group A [Strep Scrn Group A (Rapid)] Lab 06/15/25 22:35 Completed Stat Medical Decision Narrative: In summary patient is a 54-year-old male with past medical history described above who presents emergency department for evaluation of difficulty swallowing and sore throat. Patient is hemodynamically stable nontoxic-appearing upon arrival, afebrile. On my exam patient does not have elevation of the floor his mouth to be concerning for Iker's, he has no asymmetric swelling of his tonsillar fossa to suspect peritonsillar abscess however he points lower to his neck and feels as if there is an expanding sensation in his throat with limited ability to swallow and changes in phonation. Given this deep space infection is on the differential and will be ruled out with hematologic labs and CT of the neck with IV contrast. Strep swab will be obtained. Patient does not appear septic so crystalloid bolus was considered as well as broad-spectrum antibiotics will be deferred at this time. Initial interventions include multimodal pain control, steroids. CT imaging pending at time of transfer of care to the oncoming physician, Dr. Thacker. <Devika Castorena MD - Last Filed: 06/16/25 01:14> Vital Signs: 06/15/25 22:25 06/15/25 23:00 Temperature 98.6 F Temperature Source Oral Pulse Rate 60 Pulse Rate [Right Radial] 65 Respiratory Rate 20 Blood Pressure 135/68 Blood Pressure [Right Arm] 131/83 Blood Pressure Mean [Right Arm] 99 Blood Pressure Source [Right Arm] Automatic Cuff Blood Pressure Position [Right Arm] Sitting 02 Sat by Pulse Oximetry 97 95 Oxygen Delivery Method Room Air Lab Data Lab Results 06/15/25 22:35: WBC 19.1 H, RBC 4.61, Hgb 12.9 L, Hct 39.9 L, MCV 86.6, MCH 28.0, MCHC 32.3, RDW 12.2, Plt Count 270, MPV 12.4 H, Neut % (Auto) 71.6, Lymph % (Auto) 15.4, [place] % (Auto) 10.6 H, Eos % (Auto) 0.2, Baso % (Auto) 0.6, Neut # (Auto) 13.7 H, Lymph # (Auto) 2.9, [place] # (Auto) 2.0 H, Eos # (Auto) 0.0, Baso # (Auto) 0.1, Total Counted 100, Neutrophils % (Manual) 75, Lymphocytes % (Manual) 16, Monocytes % (Manual) 8, Basophils % (Manual) 1.0, Nucleated RBCs 2, Platelet Estimate Normal, RBC Morphology Normal, Sodium 136, Potassium 3.9, Chloride 99, Carbon Dioxide 29, Anion Gap 11.9, BUN 9, Creatinine 0.50 L, Estimated Creat Clear 206, Estimated GFR 173, Est GFR ( Amer) 210, Glucose 190 H, Calcium 9.4, Total Bilirubin 0.6, AST 25, ALT 28, Alkaline Phosphatase 95, C-Reactive Protein 88.4 H, Total Protein 7.3, Albumin 3.3 L, Globulin 4.0 H, A lbumin/Globulin Ratio 0.8 L, SARS-CoV-2 (PCR) Not detected, HCV Ab JODI w/Rflx PCR Qn Reactive, HIV Ag/Ab Combo Qual Negative, Influenza A Untype (PCR) Not detected, Influenza Type B (PCR) Not detected, Group A Strep Rapid Positive A Orders (Tests/Meds): ED MEDICATIONS Discontinued Medications Generic Name Dose Route Start Last Admin Trade Name Freq PRN Reason Stop Dose Admin Acetaminophen 1,000 mg 06/15/25 22:27 06/15/25 22:33 Acetaminophen 1,000mg/100ml Vial IV 06/15/25 22:28 1,000 mg ONCE ONE Administration Dexamethasone Sodium Phosphate 10 mg 06/15/25 22:27 06/15/25 22:33 Dexamethasone 4mg/Ml 1ml Vial IV 06/15/25 22:28 10 mg ONCE ONE Administration Ampicillin Sodium/Sulbactam 100 mls @ 200 mls/hr 06/16/25 00:20 06/16/25 00:42 Sodium 3 gm/ Sodium Chloride IV 06/16/25 00:21 Not Given ONCE ONE Ampicillin Sodium/Sulbactam 100 mls @ 200 mls/hr 06/16/25 00:35 06/16/25 00:38 Sodium 3 gm/ Sodium Chloride IV 06/16/25 00:36 200 mls/hr ONCE ONE Administration Iopamidol 75 ml 06/15/25 23:09 06/15/25 23:11 Iopamidol-370 (76%);100ml Bottle IV 06/15/25 23:10 75 ml ONCE ONE Administration Ketorolac Tromethamine 30 mg 06/15/25 22:27 06/15/25 22:33 Ketorolac 30mg/Ml Vial IV 06/15/25 22:28 30 mg ONCE ONE Administration Sodium Chloride 10 ml 06/15/25 23:09 06/15/25 23:11 Sodium Chloride 0.9% 10ml Syr (Rad Only) IV 06/15/25 23:10 10 ml ONCE ONE Administration ORDERS Category Date Time Status CT soft tissue neck w con Stat Cat Scan 06/15/25 22:27 Completed CBC w/Auto Diff [Complete Blood Count Auto Diff] Stat Lab 06/15/25 22:35 Completed CMP [Comprehensive Metabolic Panel] Stat Lab 06/15/25 22:35 Completed CRP [C-Reactive Protein] Stat Lab 06/15/25 22:35 Completed HCV RNA PCR, Quant Routine Lab 06/15/25 22:35 Received HIV Combo Routine Lab 06/15/25 22:35 Completed Hepatitis C Ab Qual. W/ RFX Routine Lab 06/15/25 22:35 Completed Rapid PCR Covid and Flu A/B Stat Lab 06/15/25 22:35 Completed Rapid Strep Scrn Group A [Strep Scrn Group A (Rapid)] Lab 06/15/25 22:35 Completed Stat Medical Decision Narrative: In summary patient is a 54-year-old male with past medical history described above who presents emergency department for evaluation of difficulty swallowing and sore throat. Patient is hemodynamically stable nontoxic-appearing upon arrival, afebrile. On my exam patient does not have elevation of the floor his mouth to be concerning for Iker's, he has no asymmetric swelling of his tonsillar fossa to suspect peritonsillar abscess however he points lower to his neck and feels as if there is an expanding sensation in his throat with limited ability to swallow and changes in phonation. Given this deep space infection is on the differential and will be ruled out with hematologic labs and CT of the neck with IV contrast. Strep swab will be obtained. Patient does not appear septic so crystalloid bolus was considered as well as broad-spectrum antibiotics will be deferred at this time. Initial interventions include multimodal pain control, steroids. CT imaging pending at time of transfer of care to the oncoming physician, Dr. Thacker. Castorena: I assumed care of this patient from Dr. Borden. At this time he is resting comfortably, airway patent, tolerating secretions. I reviewed labs notable for leukocytosis. CT imaging was pending at the time my assumption of care. I personally interpreted CT and do appreciate an area that appears to be a developing peritonsillar abscess, see radiology read for final interpretation which discusses 2.5 x 1.6 x 3.0 cm area of developing phlegmon/abscess that is starting to cause some airway deviation. Airway is patent and patient is having no difficulty breathing, he is tolerating secretions. With this finding, Unasyn was administered. Strep test is also positive. I discussed transfer for higher level of care and drainage with this patient. He was initially agreeable to this so we started calling around to other facilities including [facility] who does not have bed availability, [facility] he does not have ENT, [facility] who does not have ENT, and [facility] which did not have any bed availability. As were preparing to call other facilities including [facility], patient decided he wanted to leave AGAINST MEDICAL ADVICE. He states he has an elderly mother at home and is not prepared to be at any other facility at this time. He states he cannot be admitted because he has no way to get to another facility or to get home, I explained to him that he would go by ambulance to the other facility and that it was extremely important for him to receive the appropriate care including drainage of this abscess due to the risk of worsening infection and potential airway compromise among other potential complications. He is stressed over this decision and states he does not want to cause any problems but he cannot be transferred or admitted at this time and is refusing my recommendations. Patient is able to explain back to me his condition and the risks of leaving up to and including wosening of condition, severe life altering disability, or due to airway blockage or spread of infection. He was able to provide reason for his decision and clearly express this decision. Patient has capacity to make this decision and left AGAINST MEDICAL ADVICE after completing the IV Unasyn. He states he is going to come back to the ER in the morning and will be able to be transferred at that time. I encouraged him to come back here or to his nearest ER immediately for appropriate treatment and management. He ambulated independently from the ER. Critical Care <Escobar Borden MD - Last Filed: 06/15/25 22:34> Critical Care Time Critical Care Time: No
[2025-06-15] MEDS: KETOROLAC 30MG/ML VIAL 30 MG IV (22:33)
[2025-06-15] MEDS: ACETAMINOPHEN 1,000MG/100ML VIAL 1000 MG IV (22:33)
[2025-06-15] MEDS: DEXAMETHASONE 4MG/ML 1ML VIAL 10 MG IV (22:33)
--- OUTSIDE RECORDS SUMMARY | 2025-06-15 22:36 | XMS_ITS | Clinical Summary ---
Author Organization [facility] Address [address] [place] [address] Phone Care Team Providers Care Aluminum Pourer Name Role Phone Unavailable Primary Care Provider Unavailabl e Allergies No known active allergies Medications Blood Sugar Diagnostic Misc Strip 1 Strip by Misc.(Non-Drug; Combo Route) route daily. 1 box 11 9 Active lisinopril-hydr ochlorothiazide (PRINZIDE;ZESTO RETIC) 20-25 mg Oral Tablet TAKE ONE TABLET BY MOUTH EVERY DAY 90 Tab 3 0 Active omeprazole (PRILOSEC) 20 mg Oral Capsule, Delayed Release(E.C.)In dications:Gastr oesophageal reflux disease without esophagitis TAKE 1 CAPSULE BY MOUTH ONCE DAILY 90 Each 0 Active fexofenadine (HOMER) 180 mg Oral Tablet Take 1 Tab by mouth daily. 30 Tab 6 0 Active buprenorphine-n aloxone (SUBOXONE) 8-2 mg SL Tablet, SublingualIndic ations:Opioid use disorder, severe, dependence (HCC) Place 1 Tab under the tongue daily. 30 Tab 0 Active atorvastatin (LIPITOR) 20 mg Oral Tablet TAKE 1 TABLET BY MOUTH ONCE DAILY 90 Tab 3 1 Active ALLERGY RELIEF, FLUTICASONE, 50 mcg/actuation Nasl [place], SuspensionIndic ations:Rhinosin usitis USE 2 SPRAYS IN EACH NOSTRIL ONCE A DAY DIRECTED; SHAKE GENTLY 9.9 mL 5 1 Active amitriptyline (ELAVIL) 50 mg Oral TabletIndicatio ns:Insomnia, persistent,Diab etic peripheral neuropathy (HCC) TAKE 1 TAB BY MOUTH NIGHTLY. 30 Tab 2 1 Active amLODIPine (NORVASC) 10 mg Oral Tablet TAKE 1 TABLET BY MOUTH ONCE DAILY 30 Tab 6 1 Active glipiZIDE (GLUCOTROL) 5 mg Oral Tablet TAKE 1 TABLET BY MOUTH THREE TIMES DAILY WITH MEALS 90 Tablet 6 2 Active ibuprofen (ADVIL;MOTRIN) 800 mg Oral Tablet TAKE ONE TABLET BY MOUTH EVERY 8 HOURS WITH FOOD NEEDED FOR INFLAMMATION 90 Tablet 2 2 Active metFORMIN (GLUCOPHAGE) 1,000 mg Oral Tablet TAKE ONE TABLET BY MOUTH TWICE A DAY TAKE WITH FOOD 30 Tablet 2 Active FLUoxetine (PROZAC) 20 mg Oral Capsule Take 1 Capsule by mouth daily. 15 Capsule 2 Active Active Problems Problem Noted Date Diagnosed Date Need for pneumococcal vaccination 09/27/2019 Overview (09/27/2019): referred Need for hepatitis B vaccination 09/27/2019 Overview (09/27/2019): test Dyslipidemia 09/07/2018 Overview (09/07/2018): 08/11/18 total chol: 128, LDL: 0.6, TRI, HDL: 33 Continue lipitor Diet and exercise Tobacco abuse 07/15/2018 Overview (07/15/2018): stop Mood disorder 09/24/2017 Overview (07/15/2019): Denies HSI, AVH, anhedonia, despair Has a hx of depression over most of his life. Symptoms improved and stable on wellbutrin and prozac. 04/16/18 increased wellbutrin 12/28/18 will start prozac. Essential hypertension 06/25/2017 Overview (03/30/2020): BP Readings from Last 3 Encounters: 03/30/20 124/60 01/31/20 128/76 11/29/19 130/72 Taking meds. Well controlled. Denies chest pain and SOB, swelling, dizziness or orthostatics. Stable continue same. Opioid use disorder, severe, dependence 06/25/20 Overview (10/25/2020): 10/25/20 Relapsed in July 2020. Was using heroin/fentanyl nasally. Also was smoking marijuana. Last illicit drug use was 09/23/20. Admitted himself to the [facility] in 09/2020. Discharge 10/20/20. Used suboxone taper at the [facility]. And withdrew from 10/12/20 for 7 day. Now is feeling better. Last buprenorphine use was 10/08/20. Used Kratum extract on 10/23/20 Will restart buprenorphine 07/17/20 Previously on 8/2 mg and 40 would last 30 days. Relapsed around the middle of May 2020. At that time started snorting heroin/fenatnyl. Was using 0.2 gram daily. Last use was 07/16/20. Last dose of buprenorphine / naloxone was this morning and it caused withdraw symptoms. 07/15/19 Will go to every 60 day follow up. 10/20/2018 Attempted to call pt in 2 times in September for pill count and drug screen (09/24/2018 and 10/15/2018). Pt did not return my call after messages were left. Information will be passed along to Dr Valenzuela. 01/21/18 No issues. Counts and Malu ok. 01/08/2018 Pt presents for pill count and drug screen as per Dr Valenzuela. He brought in 30 full pills and left a urine for processing. Patient denies sweating, urinary frequency Exam: Appears well, in no apparent distress. With respect to a recent MALU his counts are correct and his urine showed positive for suboxone. Provider requesting pill count and drug screen was notified of results. 12/24/17 Doing IOP, 12 steps, MAT, bible study, counseling and other activities of drug court. malu is ok. Has logs. At next visit will start to wean. 06/25/17 Substance use Hx: First used marijuana at age 22. Used daily until 2015. Last use was 05/20/16/ First used alcohol at age 16. Binge drink on the week ends until age 21. Then drinking decreased. Last use was 2013. Smokes 1 PPD Camel lites. Remote one time use of methamphetamine in 1990. Previous drug of choice was cocaine. Started at age 25. Used regularly until 2011. Last use 2016. Remote intermittent use of sedatives. Very rare use. Last exposure 2011. Remote use of spice on a couple of occasions. Last exposure was 8 years ago. Denies K2 or kratum use. Started using opiates pain pills 2009. Started snorting it. At max injected 120 mg oxycodone daily. Last use 2014. Started using heroin 2011. At max dose injected 0.5 gram daily. Last use of heroin was March 2017. Currently using suboxone via [facility]. Started there March 2017. Currently using 8/2 mg 2 tabs daily. He is in drug court and they have requested that he does not got to [facility]. Denies methadone use. History of substance use related seizures: no (Tolerance: A state of adaptation in which exposure to a drug induces changes that result in diminution of one or more of the drug's effects over time.) Evidence of tolerance to any substance: yes Substances: opiates (Dependence: A state of adaptation that is manifested by a drug class specific withdrawal syndrome that can be produced by abrupt cessation, rapid dose reduction, decreasing blood level of the drug, and / or administration of an antagonist.) Evidence of dependence to any substance: yes Substances: opiates (Substance abuse: A maladaptive pattern of substance use leading to clinically significant impairment or distress, as manifested by one or more of the following, occuring with in a 12-month period: 1. Recurrent substance use resulting in a failure to fulfill major role obligations at work, school, or home. 2. Recurrent substance use in situations in which it is physically hazardous. 3. Recurrent substance- related legal problems. 4. Continued substance use despite having persistent or recurrent social or interpersonal problems caused or exacerbated by the effects of the substance. Evidence of substance abuse: Polysubstance abuse. Evidence of opioid use disorder: yes DSMV Opioid Use Disorder diagnostic criteria Opioid Use Disorder requires at least 2 criteria be met within a 12 month period 1. Opioids are often taken in larger amounts or over a longer period of time than intended. yes 2. There is a persistent desire or unsuccessful efforts to cut down or control opioid use. yes 3. A great deal of time is spent in activities necessary to obtain the opioid, use the opiod, or recover from its effects. yes 4. Craving, or a strong desire to use opioids. yes 5. Recurrent opioid use resulting in failure to fulfill major role obligations at work, school, or home. yes 6. Continued opioid use despite having persistent or recurrent social or interpersonal problems caused or exacerbated by the effects of opioids. yes 7. Important social, occupational or recreational activities are given up or reduced because of opioid use. yes 8. Recurrent opioid use in situations in which it is physically hazardous. yes 9. Continued use despite knowledge of having a persistent or recurrent physical or psychological problem that is likely to have been caused or exacerbated by opioids. yes 10. * Tolerance as defined by either of the following: A. A need for markedly increased amounts of opiods to achieve intoxication or desired effect. yes B. Markedly diminished effect with continued use of the same amount of an opioid. yes 11. * Withdrawal, as manifested by either of the following: A. The characteristic opioid withdrawal syndrome. yes B. The same (or a closely related) substance are taken to relieve or avoid withdrawal symptoms. yes * This criterion is not considered to be met for those individuals taking opioids solely under appropriate medical supervision. Severity: Mild: 2-3 symptoms, Moderate: 4-5 symptoms, Severe: 6 or more symptoms History of opioid withdrawal: yes History of overdose: no Treatment history: (inpatient / outpatient, MAT, 12 steps, location, dates) Went to rehab in 2009 for cocaine. Was clean for 2 months and started using opiate. Currently in drug court, MAT, counseling and 12 steps. Consequences of drug use: Health, social, legal, financial, employment issues. Insight, motivation, readiness to change? yes Stage of change (precontemplative, contemplative, preparative, action, maintenance, relapse): change Past psychiatric history: (Dx, duration, course, treatment): Yes, tx in past for anxiety with paxil and lexapro Previous psych hospital admissions: no Physical abuse hx: no Sexual history: Sexually active: no Number of partners in lifetime: 5 Practices safe sex: yes High risk sexual behavior? no STD hx: no Any current STD symptoms: no Sexual abuse hx: no Social recovery environment: Living situation: Lives with his mother and nephew Family / social support: yes Relationships: (Single / / / ): Never Children: none Problems at school or work? no Relational problems with spouse or children? no Involvement in violence? no Legal charges for public intox, altercations, possession or DUI? Now in drug court for receiving stolen property. Financial problems? no Partner with substance use disorder? no School hx: High school graduate Work hx: [employer] Will continue activities of recovery via drug court Counts and malu ok. Given handouts on Frequently asked questions, Welcome to [facility], Basic suboxone information, Warning about returning to opioid use Consents discussed and signed. Discussed suboxone is for safety, but recovery occurs in the process that involves counselling and sober communities. Has a month do begin establishing these or we may need to discuss a wean protocol. Referral sources provided. Continue activities of recovery. Assessment & Plan (09/07/2018 10:25 AM EDT): Has been to 12 steps and counseling Counts and malu ok Continue activities of recovery Assessment & Plan (08/12/2018 10:36 AM EDT): Has been to 12 steps and counseling Counts and malu ok Continue activities of recovery Is starting a 12 step group at his [facility] Assessment & Plan (07/15/2018 9:55 AM EDT): Has been to 12 steps and counseling Counts and malu ok Continue activities of recovery Assessment & Plan (06/17/2018 9:52 AM EDT): Has been to 12 steps and counseling Counts and malu ok Continue activities of recovery Assessment & Plan (05/13/2018 9:25 AM EDT): Has been to 12 steps and counseling Counts and malu ok Continue activities of recovery Continue tapering Assessment & Plan (04/16/2018 10:44 AM EDT): Has been to 12 steps and counseling Counts and malu ok Continue activities of recovery Assessment & Plan (03/25/2018 9:55 AM EDT): Counts and malu ok. Has been to 12 steps and counseling. Continue activities of recovery. Continue current plan.. Assessment & Plan (02/25/2018 10:37 AM EDT): Counts and Malu ok. Has been to 12 steps and counseling. Continue activities or recovery. Today will start tapering. Assessment & Plan (01/21/2018 10:21 AM EST): Stable continue current plan and activities of recovery. Gastroesophageal reflux disease without esophagi tis 06/25/2017 Overview (06/25/2017): Well controled on intermittent omeprazole OTC Well controlled diabetes mellitus Overview (03/30/2020): Lab Results Component Value Date HGBA1C 7.4 09/27/2019 HGBA1C 8.2 (A) 05/10/2019 HGBA1C 14 08/11/2018 DMII: FSBS 170-200. Eye exam up to date. No Low blood sugars. No paresthesias. Increased metformin to 1000 mg bid 08/12/18. glipizide 5 mg tid 09/07/18 Steiner/s made some diet changes. Since med changes and dietary changes sugars have improved. continue same. Check Hep B immune status Resolved Problems Problem Noted Date Diagnosed Date Resolved Date Abnormal TSH 09/07/2018 04/19/2019 Overview (09/07/2018): 08/11/18 TSH: 5.35 monitor Medical History Medical History Date Comments Hypertension DM (diabetes mellitus) (HCC) Family History Medical History Relation Name Comments Colon Cancer Neg Hx Prostate Cancer Neg Hx Social History Tobacco Use Types Packs/Day Years Used Date Smoking Tobacco: Every Day Cigarettes 1 20 Smokeless Tobacco: Never Tobacco Cessation:Ready to Q uit: No; Counseling Given: Yes Alcohol Use Standard Drinks/Week Comments No 0 (1 standard drink = 0.6 oz pur e alcohol) Overall Financial Resource Strain (CARDIA) Answe r Date Recorded Difficulty of Paying Living Expenses Not hard at all 07/15/2019 PHQ-2 Answer Date Recorded PHQ-2 Score 0 04/06/2019 Hunger Vital Sign Answer Date Recorded Worried About Running Out of Food in the Last Ye ar Never true 09/27/2019 Ran Out of Food in the Last Year Never true 09/27/2019 PRAPARE - Transportation Answer Date Re corded Lack of Transportation (Medical) No 09/27/2019 Lack of Transportation (Non-Medical) No 09/27/2019 Sexually Active Control Partners Comments Yes Female Sex and Gender Information Value Date Recorded Sex Assigned at Not on file Legal Sex Male 1:46 PM EDT Gender Identity Not on file Sexual Orientation Not on file 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 Not on file Not on file Obstetrics History Last Filed Vital Signs Vital Sign Reading Time Taken Comments Blood Pressure 138/70 10/25/2020 3:47 PM EST Pulse 91 10/25/2020 3:47 PM EST Temperature 36.3 C (97.4 F) 10/25/2020 3:47 PM EST Respiratory Rate 16 10/25/2020 3:47 PM EST Oxygen Saturation 98% 10/25/2020 3:47 PM EST Inhaled Oxygen Concentration - - Weight 98.4 kg (217 lb) 10/25/2020 3:47 PM EST Height 167.6 cm (5' 6 ) 10/25/2020 3:47 PM EST Body Mass Index 35.02 10/25/2020 3:47 PM EST Plan of Treatment Health Maintenance Due Date Last Done Comments Annual Wellness Exam 1973 DTaP/TDaP/Td (1 - Tdap) 1989 Hepatitis B Vaccine (1 of 3 - 19+ 3-dose series) 1989 Pneumococcal Vaccine 50+ (1 of 2 - PCV) 1989 Cologuard 2015 Colon Cancer Screening 2015 Colonoscopy 2015 FIT 2015 Sigmoidoscopy 2015 Virtual Colonography 2015 Hemoglobin A1c 09/30/2020 03/30/2020, 09/17, 05/10/2019, Additional history exists Low Dose Lung Cancer Screening 2020 Zoster (1 of 2) 2020 Kidney Health: eGFR 03/30/2021 03/30/2020, 9 Kidney Health: uACR 03/30/2021 03/30/2020, 06/14/2019, 08/12/2018, Additional history exists Lipids 03/30/2021 03/30/2020, 06/02/2019, 08/11/2018 Diabetic Eye Exam 07/15/2021 07/15/2019 COVID-19 Vaccine (2023- season) 2024 Influenza Vaccine (#1) 2025 07/28/2017 (Declin ed) Meningococcal B Vaccine Aged Out No l onger eligible based on patient's age to complete this topic Goals Goal Patient Goal Type Associated Problems Recent Progress Patient-Stated? Author Blood Pressure < 140/90 Blood Pressure 138/70(2019 3:47 PM EST) No Tulio Valenzuela MD Maintain a healthy diet, exercise regularly and maintain an ideal body weight General No Enedina Chris CCMA BMI (Calculated) < 30 General 35.1(10/25/20 20 3:47 PM EST) No Tulio Valenzuela MD Stay Tobacco Free Lifestyle No Enedina Chris CCMA HEMOGLOBIN A1C < 7.0 Result Component 8.9( 0 1:30 PM EDT) No Tulio Valenzuela MD Procedures Procedure Name Priority Date/Time Associated Diagnosis Comments MICROALBUMIN/CREATININ E RATIO URINE Routine 03/30/2020 1:30 PM EDT Well controlled diabetes mellitus (HCC) COMPREHENSIVE METABOLIC PANEL Routine 03/30/2020 1:30 PM EDT Dyslipidemia LIPID PANEL REFLEX Routine 03/30/2020 1: 30 PM EDT Dyslipidemia HEMOGLOBIN A1C Routine 03/30/2020 1:30 PM EDT Well controlled diabetes mellitus (HCC) from Last 3 Months or Most Recently Relevant to Health Maintenance Results * (ABNORMAL) LIPID PANEL REFLEX (03/30/2020 1:30 PM EDT) Cholesterol 132 <200 mg/dL 03/30/2020 7:49 PM EDT [facility] [place] Comment: < 200 Desirable 200 - 239 Borderline High >= 240 High Triglyceride 129 <150 mg/dL 03/30/2020 7:49 PM EDT [facility] [place] Comment: < 150 Normal 150 - 199 Borderline High 200 - 499 High >= 500 Very High HDL 34(L) >=40 mg/dL 03/30/2020 7:49 PM EDT [facility] [place] Comment: > 60 Optimal 40 - 60 Acceptable < 40 Low LDL Calculated 72 <100 mg/dL 03/30/2020 7:49 PM EDT [facility] Non-HDL-C Calculated 98 <=129 mg/dL 03/30/2020 7:49 PM EDT [facility] Comment: <130 Desirable 130-159 Above Desirable 160-189 Borderline High 190-219 High >= 220 Very High Fasting Specimen? Yes None 7:49 PM EDT [facility] Blood VENOUS BLOOD / Unknown Venipuncture / Unknown 03/30/2020 1:30 PM EDT 03/30/2020 1:30 PM EDT Tulio Valenzuela MD CHEMISTRY ORDERABLES Final Result Performing Organization Address [facility] de Phone Number [facility] [address] , [address] [id number] * MICROALBUMIN/CREATININE RATIO URINE (03/30/2020 1:30 PM EDT) Pathologist [facility] Urine Microalb <12.0 mg/L 03/30/2020 7:56 PM EDT [facility] Urine Creatinine 20.5 mg/dL 03/30/20 20 7:56 PM EDT [facility] Ur Microalb/Creat 7:56 PM EDT [facility] Comment: Because the albumin level is below the level of detection in this urine specimen, the laboratory is unable to calculate a reliable albumin/creatinine ratio. Microalbuminuria is unlikely if the urine albumin concentration is less than 20- 30 mg/L in a random specimen. Urine STRUCTURE OF URINARY TRACT PROPER / Unknown 03/30/2020 1:30 PM EDT 03/30/2020 1:30 PM EDT Tulio Valenzuela MD URINE ORDERABLES Final Resu lt Performing Organization Address [facility] de Phone Number [facility] [address] , [place] [address] * (ABNORMAL) HEMOGLOBIN A1C (03/30/2020 1:30 PM EDT) Hgb A1C 8.9(H) 4.2 - 5.6 % 03/30/2020 7:47 PM EDT [facility] Est. Avg Glucose 209 mg/dL 03/30/2020 7:47 PM EDT [facility] Blood VENOUS BLOOD / Unknown Venipuncture / Unknown 03/30/2020 1:30 PM EDT 03/30/2020 1:30 PM EDT Narrative [facility] - 03/30/2020 7:47 PM EDT REFERENCE RANGE: Normal: 4.0-5.6% Pre-diabetes: 5.7-6.4% Provisional diagnosis of diabetes: >6.4% Hgb F>10% and anything which shortens red cell survival, such as hemolytic anemia, or unstable hemoglobin variants such as HbSS, HbSC, or HbCC, will lower the HbA1c value associated with a given level of glycemic control. us Tulio Valenzuela MD CHEMISTRY ORDERABLES Final Result [facility] [address] , [place] [address] * (ABNORMAL) COMPREHENSIVE METABOLIC PANEL (03/30/2020 1:30 PM EDT) Sodium 135(L) 136 - 145 mmol/L 03/30/2020 7:49 PM EDT [facility] Potassium 4.8 3.5 - 5.0 mmol/L 03/30/2020 7:49 PM EDT [facility] Chloride 96(L) 98 - 107 mmol/L 03/30/2020 7:49 PM EDT [facility] Total CO2 25 22 - 29 mmol/L 03/30/2020 7:49 PM EDT [facility] Anion Gap 14 7 - 16 mmol/L 03/30/2020 7:49 PM EDT [facility] Calcium 9.7 8.6 - 10.4 mg/dL 03/30/2020 7:49 PM EDT [facility] Glucose Lvl 163(H) 74 - 100 mg/dL 03/30/2020 7:49 PM EDT [facility] BUN 13 6 - 20 mg/dL 03/30/2020 7:49 PM EDT [facility] Creatinine 0.79 0.67 - 1.30 mg/dL 03/30/2020 7:49 PM EDT [facility], [facility] Albumin 4.7 3.5 - 5.2 gm/dL 03/30/2020 7:49 PM EDT [facility], [facility] Total Protein 7.6 6.4 - 8.3 gm/dL 03/30/2020 7:49 PM EDT [facility], [facility] Bili Total 0.4 0.1 - 1.4 mg/dL 03/30/2020 7:49 PM EDT [facility], [facility] ALT 45(H) <=41 U/L 03/30/2020 7:49 PM EDT [facility], [facility] AST 30 <=40 U/L 03/30/2020 7:49 PM EDT [facility], [facility] Alk Phos 67 40 - 129 U/L 03/30/2020 7:49 PM EDT [facility], [facility] GFR Afr Am 122 >=60 mL/min/1.7 3 m2 03/30/2020 7:49 PM EDT [facility] GFR Non Afr Am 105 >=60 mL/min/1.7 3 m2 03/30/2020 7:49 PM EDT [facility] Comment: This estimated GFR was calculated using CKD-EPI equation which is modified based on ethnicity for Non Americans and Americans. Both results are reported since it is not always possible to determine the patient's ethnicity. This equation should only be used for individuals 18 and older. It has not been validated for use with the elderly (>70 years), women, or in some racial or ethnic subgroups, such as Hispanics. The equation will be less accurate in people with differences in nutritional status or muscle mass. Blood VENOUS BLOOD / Unknown Venipuncture / Unknown 03/30/2020 1:30 PM EDT 03/30/2020 1:30 PM EDT Tulio Valenzuela MD CHEMISTRY ORDERABLES Final Result [facility], [facility] [address], [address] [place] [id number] [address] [address] from Last 3 Months or Most Recently Relevant to Health Maintenance Insurance [facility]
[2025-06-15 22:47] LABS: Coronavirus 19, PCR Not Detected (NotDetected); Influenza A, PCR Not Detected (NotDetected); Influenza B, PCR Not Detected (NotDetected)
[2025-06-15 22:50] LABS: Hematocrit 39.9 % (42.0-52.0); Hemoglobin 12.9 g/dL (14.1-18.0); Immature Granulocytes % 1.6 %; Mean Corpuscular HGB Conc 32.3 g/dL (31.8-35.4); Mean Corpuscular Hemoglobin 28.0 pg (27.0-31.2); Mean Corpuscular Volume 86.6 fl (80-94); Nucleated Red Blood Cells % 0 %; Platelet Count 270 K/mm3 (142-424); Red Blood Count 4.61 M/mm3 (4.60-6.20); Red Cell Distribution Width-SD 38.5 fL; White Blood Count 19.1 K/mm3 (4.8-10.8)
[2025-06-15 22:57] LABS: Albumin Level 3.3 g/dl (3.5-5.0); Chloride 99 mmol/L (98-107); Potassium 3.9 mmoL/L (3.5-5.1); Sodium 136 mmol/L (136-145)
[2025-06-15 22:59] LABS: Blood Urea Nitrogen 9 mg/dl (9-20); Creatinine Clearance Estimated 206 mL/min (50-200); Creatinine,Serum 0.50 mg/dl (0.66-1.25); Estimated Glomerular Filt Rate 173 ml/min (>60); GFR (African American) 210 ML/MIN (>60)
[2025-06-15 23:00] VITALS: BP 135/68; PULSE 60; O2SAT 95
[2025-06-15 23:00] LABS: Alanine Aminotransferase 28 U/L (12-78); Albumin/Globulin Ratio 0.8 (1.1-1.8); Alkaline Phosphatase 95 U/L (38-126); Anion Gap 11.9 mEq/L (5-15); Aspartate Amino Transferase 25 U/L (17-59); Bilirubin,Total 0.6 mg/dl (0.2-1.3); Calcium 9.4 mg/dl (8.4-10.2); Carbon Dioxide 29 mmol/L (22.0-30.0); Globulin 4.0 g/dL (1.3-3.2); Glucose 190 mg/dl (74-100); Total Protein,Serum 7.3 g/dl (6.3-8.2)
[2025-06-15 23:01] LABS: Strep Scrn Group A (Rapid) Positive (Negative)
[2025-06-15 23:06] LABS: C-Reactive Protein 88.4 mg/L (0-4)
--- NOTE | 2025-06-15 23:07 | PC.NURSE ---
Pt ambulatory to CT scan
[2025-06-15] MEDS: SODIUM CHLORIDE 0.9% 10ML SYR (RAD ONLY) 10 ML IV (23:11)
[2025-06-15] MEDS: IOPAMIDOL-370 (76%);100ML BOTTLE 75 ML IV (23:11)
[2025-06-15 23:51] LABS: Hepatitis C Ab Qual. W/ RFX REACTIVE (Negative)
[2025-06-16 00:01] VITALS: BP 144/57
[2025-06-16 00:03] LABS: Total Cells Counted 100
[2025-06-16 00:04] LABS: RBC Morphology Normal
[2025-06-16 00:15] VITALS: PULSE 56; O2SAT 98
[2025-06-16] MEDS: AMPICILLIN SODIUM/SULBACTAM 3 GM in 0.9 % SODIUM CHLORIDE 100 ML IV (00:38)
--- NOTE | 2025-06-16 01:13 | PC.NURSE ---
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
[2025-06-16 01:14] VITALS: BP 144/57; PULSE 56; RESP 20; TEMP 37.1; O2SAT 96
== END 2025-06-16 01:15 | disposition left against medical advice (07) ==
PROVIDERS: Emergency Provider Emergency Medicine; PCP Internal Medicine
DX: J36 Peritonsillar abscess (principal); F17.210 Nicotine dependence, cigarettes, uncomplicated; E78.5 Hyperlipidemia, unspecified; E11.42 Type 2 diabetes mellitus with diabetic polyneuropathy; F11.20 Opioid dependence, uncomplicated; E11.9 Type 2 diabetes mellitus without complications
CPT/HCPCS: 70491; 80053; 85007; 85025; 85027; 86140; 86803; 87389; 87430; 87522; 87636; 96365; 96375; 99284; J0131; J0295; J1100; J1885; Q9967

== ENCOUNTER 2025-06-16 09:27 | Emergency (ER) | payer OTHER, SELFPAY ==
[2025-06-16] VITALS (7 sets, daily range): BP systolic 144–154; BP diastolic 84–105; PULSE 64–107; RESP 17–20; TEMP 36.6–37.1; O2SAT 96–98; BMI 29.0
--- OUTSIDE RECORDS SUMMARY | 2025-06-16 09:40 | XMS_ITS | Clinical Summary ---
Author Organization [facility] Address [address] [place] [address] Phone Care Team Providers Care Performance Reporter Name Role Phone Unavailable Primary Care Provider [...] Active ALLERGY RELIEF, FLUTICASONE, 50 mcg/actuation Nasl Karval, SuspensionIndic ations:Rhinosin usitis USE 2 SPRAYS IN [...] use was 09/23/20. Admitted himself to the [facility] in 09/2020. Discharge 10/20/20. Used suboxone taper at the [facility]. And withdrew from 10/12/20 for [...] was March 2017. Currently using suboxone via [facility]. Started there March 2017. Currently using 8/2 mg 2 tabs daily. [place] is in drug court and they have requested that he does not got to [facility]. Denies methadone use. 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 Not on file Not [...] mg/dL 03/30/2020 7:49 PM EDT [facility] [employer] [employer] Comment: < 200 Desirable 200 - 239 Borderline High >= 240 High Triglyceride 129 <150 mg/dL 03/30/2020 7:49 PM EDT [facility] [employer] [employer] Comment: < 150 Normal 150 - 199 Borderline High 200 - 499 High >= 500 Very High HDL 34(L) >=40 mg/dL 03/30/2020 7:49 PM EDT [facility] [employer] [employer] Comment: > 60 Optimal 40 - 60 Acceptable < 40 Low LDL Calculated 72 <100 mg/dL 03/30/2020 7:49 PM EDT [facility] Non-HDL-C Calculated 98 <=129 mg/dL 03/30/2020 7:49 PM EDT [facility] Comment: <130 Desirable 130-159 Above Desirable 160-189 Borderline High 190-219 High >= 220 Very High Fasting Specimen? Yes None 7:49 PM EDT [facility] Blood VENOUS BLOOD / Unknown Venipuncture / Unknown 03/30/2020 1:30 PM EDT 03/30/2020 1:30 PM EDT Tulio Valenzuela MD CHEMISTRY ORDERABLES Final Result Performing Organization Address [facility] de Phone Number [facility] [address] [facility] , [address] [place] [id number] * MICROALBUMIN/CREATININE RATIO URINE (03/30/2020 1:30 PM EDT) Pathologist [facility] Urine Microalb <12.0 mg/L 03/30/2020 7:56 PM EDT [facility] Urine Creatinine 20.5 mg/dL 03/30/20 20 7:56 PM EDT [facility] Ur Microalb/Creat 7:56 PM EDT [facility] Comment: Because the albumin level is [...] ORDERABLES Final Resu lt Performing Organization Address [facility] de Phone Number [facility] [address] [facility] , [place] [address] * (ABNORMAL) HEMOGLOBIN A1C (03/30/2020 1:30 PM EDT) Hgb A1C 8.9(H) 4.2 - 5.6 % 03/30/2020 7:47 PM EDT [facility] Est. Avg Glucose 209 mg/dL 03/30/2020 7:47 PM EDT [facility] Blood VENOUS BLOOD / Unknown Venipuncture / Unknown 03/30/2020 1:30 PM EDT 03/30/2020 1:30 PM EDT Narrative [facility] - 03/30/2020 7:47 PM EDT REFERENCE RANGE: Normal: 4.0-5.6% Pre-diabetes: 5.7-6.4% Provisional diagnosis of diabetes: >6.4% Hgb F>10% and anything which shortens red cell survival, such as hemolytic anemia, or unstable hemoglobin variants such as HbSS, HbSC, or HbCC, will lower the HbA1c value associated with a given level of glycemic control. us Tulio Valenzuela MD CHEMISTRY ORDERABLES Final Result [facility] [address] [facility] [facility] [facility] , [place] [address] * (ABNORMAL) COMPREHENSIVE METABOLIC PANEL (03/30/2020 1:30 [...] mg/dL 03/30/2020 7:49 PM EDT [facility] Creatinine 0.79 0.67 - 1.30 mg/dL 03/30/2020 7:49 PM EDT [facility], [facility] Albumin 4.7 3.5 - 5.2 gm/dL 03/30/2020 7:49 PM EDT [facility] Total Protein 7.6 6.4 - 8.3 gm/dL 03/30/2020 7:49 PM EDT [facility], [facility] Bili Total 0.4 0.1 - 1.4 mg/dL 03/30/2020 7:49 PM EDT [facility], [facility] ALT 45(H) <=41 U/L 03/30/2020 7:49 PM EDT [facility], [facility] AST 30 <=40 U/L 03/30/2020 7:49 PM EDT [facility], [facility] Alk Phos 67 40 - 129 U/L 03/30/2020 7:49 PM EDT [facility] GFR Afr Am 122 >=60 mL/min/1.7 3 m2 03/30/2020 7:49 PM EDT [facility] GFR Non Afr Am 105 >=60 mL/min/1.7 3 m2 03/30/2020 7:49 PM EDT [facility] Comment: This estimated GFR was calculated [...] MD CHEMISTRY ORDERABLES Final Result [facility], [facility] [address] [facility], [address] [place] [id number] [address] [address] from Last 3 Months or Most Recently Relevant to Health Maintenance Insurance [facility]
--- NOTE | 2025-06-16 09:56 | HMH.EDGENADL ---
Discharge Plan Disposition Patient Disposition: Xfer Other Prescriptions Prescriptions: No Action aspirin [Adult Aspirin Regimen] 81 mg tablet,delayed release (DR/EC) 81 mg PO DAILY Qty: 90 3RF ergocalciferol (vitamin D2) 1,250 mcg (50,000 unit) capsule 1,250 mcg PO WEEKLY Qty: 14 3RF methadone 10 mg/5 mL solution 135 mg PO DAILY mupirocin calcium 2 % cream 1 applic topical BID Qty: 30 3RF fluoxetine 10 mg capsule 10 mg PO DAILY Qty: 30 2RF lactulose 10 gram/15 mL solution 20 g PO DAILY PRN (Reason: constipation) Qty: 946 1RF (DME) blood-glucose meter Misc See Rx Instructions .ROUTE .MEDSUPPLY Qty: 1 0RF Rx Instructions: Check blood sugars twice a day and keep a record insulin glargine [Lantus Solostar U-100 Insulin] 100 unit/mL (3 mL) insulin pen 40 unit SQ HS Qty: 15 5RF cholecalciferol (vitamin D3) 50 mcg (2,000 unit) capsule 50 mcg PO DAILY Qty: 90 3RF (DME) Dexcom G6 Vibrator Operator Misc See Rx Instructions .Route Qty: 1 0RF Rx Instructions: As directed (DME) Dexcom G6 Transmitter Device See Rx Instructions .Route Qty: 1 0RF Rx Instructions: As directed (DME) Dexcom G6 Sensor Device See Rx Instructions .Route Qty: 3 0RF Rx Instructions: As directed (DME) pen needle, diabetic [BD Ultra-Fine Micro Pen Needle] 32 gauge x 1/4 needle See Rx Instructions .Route Qty: 100 5RF Rx Instructions: As directed CHECK SUGAR TWICE DAILY losartan-hydrochlorothiazide 50-12.5 mg tablet 1 tab PO DAILY Qty: 90 1RF glipizide 10 mg tablet 10 mg PO BID Qty: 180 1RF cetirizine [Zyrtec] 10 mg tablet 10 mg PO DAILY Qty: 30 2RF fluticasone propionate [Flonase Allergy Relief] 50 mcg/actuation spray,suspension 1 spray intranasal DAILY PRN (Reason: allergy symptoms) Qty: 16 2RF Rx Instructions: administer into each nostril metformin 1,000 mg tablet 1,000 mg PO BID Qty: 180 1RF Rx Instructions: Take with food or meal atorvastatin 40 mg tablet 40 mg PO DAILY Qty: 90 1RF naproxen 500 mg tablet See Rx Instructions .ROUTE .COMPLEX Qty: 60 1RF Dose Instruction: TAKE ONE TABLET BY MOUTH 2 TIMES A DAY NEEDED FOR PAIN OR INFLAMMATION Rx Instructions: TAKE ONE TABLET BY MOUTH 2 TIMES A DAY NEEDED FOR PAIN OR INFLAMMATION nicotine (polacrilex) 4 mg gum 4 mg buccal Q2H Qty: 100 1RF omeprazole 20 mg capsule,delayed release(DR/EC) See Rx Instructions .ROUTE .COMPLEX Qty: 90 1RF Dose Instruction: TAKE 1 CAPSULE BY MOUTH ONCE DAILY FOR STOMACH Rx Instructions: TAKE 1 CAPSULE BY MOUTH ONCE DAILY FOR STOMACH gabapentin 300 mg capsule 600 mg PO HS Qty: 60 0RF Referrals Follow up/Referrals: Wilberto Ward MD [Primary Care Provider, Medical] - See instructions Clinical Impressions Clinical Impression: Abscess, peritonsillar Print Language Print Language: Malay Discharge ED Provider: Cristian Agee General Adult HPI General Chief complaint: Recheck/Abnormal Lab/Rx Stated complaint: abnormal ct, was seen in er last night Time Seen by Provider: 06/16/25 09:38 Mode of Arrival: Ambulatory Source of Information: Patient Description of Symptoms (Recalled from ER Triage Doc. by RN): Patient presents to ED with reports he signed out AMA yesterday due to family obligations and is now here for further treatment. Patient reports left sided throat discomfort and headache that started Friday, states symptoms progressed and he started having difficulty swallowing. Patient reports symptoms are better today, denies pain at this time. Denies difficulty in breathing. History of Present Illness HPI narrative: Facundo Major is a 54y male with a history of diabetes that he states is poorly controlled who presents to the emergency department for a peritonsillar abscess. Patient states that on Friday, he developed a sore throat and pain with swallowing that worsened over the next few days. He denies any shortness of breath. He states that he took some Keflex that he had leftover at home without improvement of his symptoms. He presented to the emergency department yesterday evening and was diagnosed with a left peritonsillar abscess on CT scan. He states that no attempt was made to drain it last night and plan to transfer him to another facility with ENT specialist for drainage, however he takes care of his elderly mother at home and was unable to be admitted or transfer at that time, so he got his affairs in order and return to the emergency department this morning. Related Data Home Medications ?Medication ?Instructions ?Recorded ?Confirmed methadone 10 mg/5 mL oral solution 135 mg PO DAILY 09/27/24 05/11/25 Previous Rx's ?Medication ?Instructions ?Recorded cholecalciferol (vitamin D3) 50 50 mcg PO DAILY #90 caps 01/10/23 mcg (2,000 unit) capsule blood-glucose transmitter (Dexcom #1 ea 01/22/23 G6 Transmitter device) blood-glucose,associate media director,cont #1 ea 01/22/23 (Dexcom G6 Vibrator Operator) blood-glucose sensor (Dexcom G6 #3 ea 02/11/23 Sensor device) aspirin 81 mg tablet,delayed 81 mg PO DAILY #90 tabs 05/28/24 release (Adult Aspirin Regimen) ergocalciferol (vitamin D2) 1,250 1,250 mcg PO WEEKLY #14 caps 05/28/24 mcg (50,000 unit) capsule pen needle, diabetic 32 gauge x #100 ea 11/03/2411/20 (BD Ultra-Fine Micro Pen Needle) glipizide 10 mg tablet 10 mg PO BID #180 tabs 12/06/24 losartan 50 mg-hydrochlorothiazide 1 tab PO DAILY #90 tabs 12/06/24 12.5 mg tablet mupirocin calcium 2 % topical cream 1 applic topical BID #30 grams 01/03/25 fluoxetine 10 mg capsule 10 mg PO DAILY #30 caps 01/24/25 cetirizine 10 mg tablet (Zyrtec) 10 mg PO DAILY #30 tabs 02/04/25 fluticasone propionate 50 1 spray intranasal DAILY PRN 02/04/25 mcg/actuation nasal allergy symptoms #16 grams spray,suspension (Flonase Allergy Relief) atorvastatin 40 mg tablet 40 mg PO DAILY #90 tabs 02/11/25 metformin 1,000 mg tablet 1,000 mg PO BID #180 tabs 02/11/25 naproxen 500 mg tablet See Rx Instructions .Route 03/28/25 .COMPLEX #60 tabs blood-glucose meter #1 ea 05/11/25 insulin glargine 100 unit/mL (3 40 unit (0.4 mL) SQ HS #15 mL 05/11/25 mL) subcutaneous pen (Lantus Solostar U-100 Insulin) lactulose 10 gram/15 mL oral 20 g (30 mL) PO DAILY PRN 05/11/25 solution constipation #946 mL nicotine (polacrilex) 4 mg gum 4 mg buccal Q2H #100 ea 05/17/25 omeprazole 20 mg capsule,delayed See Rx Instructions .Route 05/26/25 release .COMPLEX #90 caps gabapentin 300 mg capsule 600 mg (2 x 300 mg) PO HS #60 caps 06/08/25 Allergies Allergy/AdvReac Type Severity Reaction Status Date / Time No Known Allergies Allergy Verified 05/11/25 15:17 [facility] Disclaimer: The information contained in this section may have been updated after the patient was seen, as this information can be updated by other users. Medical History Tobacco use Opiate dependence Uncontrolled blood glucose Traumatic ulcer of lower leg, limited to breakdown of skin Acute eczema Hypertension Diabetes Vitamin D deficiency Surgical History No significant past surgical history Family History Other No significant family history Social History Smoking Status: Current every day smoker tobacco type: cigarettes packs per day: 1 alcohol intake: never substance use type: marijuana current occupational status: employed Travel in the last 8 weeks?: None household members: family housing: house Have you lived/traveled outside [place] in past 30 days?: No Contact w/someone who lives/traveled outside US past 30 days?: No Exposure to someone with infectious disease in past 14 days?: No Do you have a fever (greater than 100.4 F or 38 C)?: No Have you tested positive for COVID-19?: No Exposed to someone with COVID-19 in past 14 days?: No Do you have a sore throat?: Yes Do you have a cough?: No Do you have any weakness?: No Do you have any diarrhea?: No Are you experiencing any unusual bleeding?: No Do you have any muscle aches/pain?: No Do you have any abdominal pain?: No Are you experiencing loss of taste or smell?: No Other Medical History Have you received the Flu Vaccine for this season: No Have you received the Pneumonia Vaccine: No ROS Obtained: Yes Systems reviewed as appropriate & no additional complaints except as documented Physical Exam General General appearance: alert and in no apparent distress Head Head exam: atraumatic Eye Eye exam: Present normal appearance ENT ENT exam: Present normal external ear exam and other (Swelling in the left peritonsillar region. Uvula is midline. Tolerating secretions.) Neck Neck exam: Present full ROM Chest Chest inspection: Present symmetric chest wall rise Respiratory Respiratory exam: Present normal lung sounds bilaterally; Absent respiratory distress Cardiovascular Cardiovascular exam: Present regular rate and normal rhythm Abdominal Exam Abdominal exam: Present soft; Absent tenderness or guarding exam: Present deferred Extremities Exam Extremities exam: Present normal inspection Back Exam Back exam: Present normal inspection Neurological Exam Neurological exam: Present alert and oriented X3 Psychiatric Psychiatric exam: Present normal affect Skin Skin exam: Present warm and dry Medical Decision Making Medical Records Screening: Per USPSTF and CDC recommendations, given the prevalence of disease in our region, it is our hospital?s policy to screen for HIV and viral Hepatitis for all patients aged 18 and over and those with ongoing risk factors. [place] Inquiry Pt receiving controlled substance: No Vital Signs: 06/16/25 09:35 06/16/25 09:36 06/16/25 10:01 Temperature 98.7 F Temperature Source Oral Pulse Rate 107 H 87 Pulse Rate [Left] 88 Respiratory Rate 19 19 19 Blood Pressure 147/103 H Blood Pressure [Right Arm] 154/105 H Blood Pressure Mean 120 Blood Pressure Mean [Right Arm] 121 Blood Pressure Source [Right Arm] Automatic Cuff Blood Pressure Position [Right Arm] Sitting 02 Sat by Pulse Oximetry 98 98 96 Oxygen Delivery Method Room Air Room Air Room Air 06/16/25 10:15 Temperature Temperature Source Pulse Rate 77 Pulse Rate [Left] Respiratory Rate Blood Pressure 144/90 H Blood Pressure [Right Arm] Blood Pressure Mean Blood Pressure Mean [Right Arm] Blood Pressure Source [Right Arm] Blood Pressure Position [Right Arm] 02 Sat by Pulse Oximetry 96 Oxygen Delivery Method Orders (Tests/Meds): ED MEDICATIONS Generic Name Dose Route Start Last Admin Trade Name Freq PRN Reason Stop Dose Admin Benzocaine/Butamben/Tetracaine HCl 1 gm 06/16/25 09:49 06/16/25 10:05 Tetracaine/Benzocaine/Butamben 56 Gm [place] TP 07/16/25 09:48 1 gm NEEDED PRN Administration Sore Throat Medical Decision Narrative: Facundo Major is a 54y male with a history of diabetes that he states is poorly controlled who presents to the emergency department for a peritonsillar abscess. Patient states that on Friday, he developed a sore throat and pain with swallowing that worsened over the next few days. He denies any shortness of breath. He states that he took some Keflex that he had leftover at home without improvement of his symptoms. He presented to the emergency department yesterday evening and was diagnosed with a left peritonsillar abscess on CT scan. He states that no attempt was made to drain it last night and plan to transfer him to another facility with ENT specialist for drainage, however he takes care of his elderly mother at home and was unable to be admitted or transfer at that time, so he got his affairs in order and return to the emergency department this morning. On arrival, patient is mildly hypertensive, heart rate within normal limits, afebrile, breathing comfortably on room air and maintaining oxygen saturations above 96% SpO2. Physical exam, stated above, revealed an overall well-appearing male in no distress. He is speaking full sentences, does not appear short of breath, he is tolerating his secretions appropriately. Oropharyngeal exam does show some swelling in the left peritonsillar area but no uvular shift. Differential diagnosis includes, but is not limited to: Peritonsillar abscess, strep pharyngitis, deep space abscess, among others. the most morbid conditions were considered and workup was based on these. Patient had complete workup performed yesterday with CT soft tissue neck with IV contrast as well as CBC, CMP, CRP and demonstrated leukocytosis with WBC 19.1, CMP unremarkable, elevated CRP of 88.4, Patient did have a positive rapid group A strep screening. CT abdomen pelvis showed a left palatine tonsillar hypodensity measuring 2.5 x 1.6 x 3.0 cm mass consistent with left peritonsillar phlegmon/developing abscess with mass effect and partial airway narrowing. It is felt that since patient just had this complete workup performed yesterday, no additional workup is indicated at this time. Will attempt to drain abscess at the bedside using 18-gauge spinal needle with plastic sheath overlying the needle cut 1.5 cm back from the end of the needle, only leaving 1.5 cm of the needle exposed. Patient's throat was numbed with tetracaine spray. Patient held a Mac 3 blade over his tongue to keep his tongue out of the way. He was given [place] and suction for him to control. 3 times were made starting at the most superior aspect of the peritonsillar region moving downwards with each attempt, however each attempt was unsuccessful. See procedure note for additional details. Given this, this felt the patient will need ENT evaluation for his peritonsillar abscess. I discussed transferring patient to other facilities with ENT capabilities and he was in agreement with this plan. Will attempt to reach out to for transfer at this time. I spoke with Dr. Garcia at [facility] who agreed to accept the patient to the [facility] emergency department for ENT evaluation and likely drainage. Will transfer patient BLS by ground given partial airway narrowing on CT imaging. Procedures Abscess I/D Site: other (Left peritonsillar abscess) Side (if applicable): left Local Anesthetic: other anesthetic (Tetracaine spray) Technique: needle aspiration Amount of fluid expressed (mL): 0 Irrigation: No Packing used?: none Complications: bleeding Critical Care Critical Care Time Critical Care Time: No
[2025-06-16] MEDS: TETRACAINE/BENZOCAINE/BUTAMBEN 56 GM SPRAY TP (10:05)
--- NOTE | 2025-06-16 10:20 | PC.NURSE ---
MD @ bedside attempting to drain abcess
--- NOTE | 2025-06-16 10:43 | PC.NURSE ---
Called [facility] for possible transfer; powershared images to [facility] as well
--- NOTE | 2025-06-16 11:30 | PC.NURSE ---
called back and is speaking with Dr Agee at this time
--- NOTE | 2025-06-16 11:58 | PC.NURSE ---
Patient report called to RACAHEL Quick at [facility].
--- NOTE | 2025-06-16 12:04 | PC.NURSE ---
EMS has been called and made aware of this transfer
--- NOTE | 2025-06-16 12:08 | PC.NURSE ---
Patient awaiting EMS transport to ED. VSS, Respirations even and unlabored. No s/s of distress noted. Call light in reach.
--- NOTE | 2025-06-16 13:44 | PC.NURSE ---
EMS on site for transport.
== END 2025-06-16 13:51 | disposition other institution (70) ==
PROVIDERS: Emergency Provider Student in an Organized Health Care Education/Training Program; PCP Internal Medicine
DX: J36 Peritonsillar abscess (principal); E11.9 Type 2 diabetes mellitus without complications; F17.210 Nicotine dependence, cigarettes, uncomplicated
CPT/HCPCS: 42700; 99285